=== PATIENT | female | born 1965 | race Caucasian/White ===

== ENCOUNTER 2021-01-31 21:18 | Inpatient (IN) | payer MEDICARE, MEDICAID ==
[~2021-01-31] VITALS: Ht 157.5 cm; Wt 103.0 kg
--- NOTE | ~2021-01-31 | EEG ---
PATIENT:RICHA DURAN MEDICAL RECORD: [id number] DATE OF : 65 LOCATION:D.212 D.M2 ADMISSION DATE: 01/31/21 REFERRING PHYSICIAN: INTERPRETING PHYSICIAN: HANNAH MONAE MD DATE OF SERVICE: 02/05/2021 DATE OF EE02/05/2021. ROOM NUMBER: 2120. ORDERED BY: Dr. Monae. CASE HISTORY: A 56-year-old female with known renal failure, on dialysis, transferred from another facility with hyperkalemia, missed her dialysis 3 days prior, now more lethargic and poorly responsive, onset 02/04/2021. Blood chemistries are abnormal. No focal motor or sensory deficits or seizure reported. CT head negative. PROCEDURE: EEG done as a routine bedside portable recording using the standard 10-20 international electrode system . A 16-channel was used with 17th as EKG. Photic stimulation was done as activation procedure. DESCRIPTION: EEG opens with the patient poorly responsive, moving about with the record displaying diffuse background slowing in the theta and delta range. Primarily background is characterized by organization in the 5-6 Hz range, rarely 6-7 Hz range with prominent delta slowing intermixed. There is motor artifact related to patient head and limb movement. Photic stimulation did not yield a photoparoxysmal response. No epileptiform change such as spike, polyspike, or spike and wave was seen. IMPRESSION: Moderately abnormal EEG with diffuse background slowing consistent with encephalopathy. No focal abnormality that might suggest stroke and no evidence of seizure disorder. TRANSINT:[id number] Voice Confirmation ID: [id number] DOCUMENT ID: [id number] HANNAH MONAE MD CC: [id number] DICTATION DATE: 02/05/21 1154 BROOMCORN SEEDER: 02/05/21 1639 ADM IN [facility] [address] [place] [address]
[2021-01-31 23:56] VITALS: BP 132/78; BMI 42.1
[2021-02-01] VITALS (15 sets, daily range): BP systolic 127–158; BP diastolic 49–87; Ht 157.5 cm; Wt 103.0 kg
[2021-02-01 00:33] LABS: BASOPHILS 0.2 % (0-2); EOSINOPHILS 0.8 % (0-7); HEMATOCRIT 27.1 % (36.0-48.0); HEMOGLOBIN 8.1 g/dL (12-16); IMMATURE GRANULOCYTES 0.3 % (0-5); LYMPHOCYTE ABS# 0.65 10x3/uL (1.18-3.74); LYMPHOCYTES 7.4 % (15-50); MCH 29.8 pg (26.0-34.0); MCHC 29.9 g/dL (31.0-37.0); MCV 99.6 fL (80.0-100.0); MEAN PLATELET VOLUME 10.7 fL (7.4-10.4); MONOCYTES 5.7 % (2-11); NEUTROPHIL ABS# 7.56 10x3/uL (1.56-6.13); NEUTROPHILS 85.6 % (40-80); PLATELET COUNT 110 10x3/uL (130-400); RBC 2.72 10x6/uL (4.00-5.40); RDW 18.8 % (11.5-14.5); WBC 8.8 10x3/uL (4.8-10.8)
[2021-02-01 00:50] LABS: ALBUMIN 3.7 g/dL (3.4-5.0); ANION GAP 31.6 mmol/L (8-16); BILIRUBIN - TOTAL 0.53 mg/dL (0.2-1.3); CALCIUM 7.4 mg/dL (8.5-10.1); CARBON DIOXIDE 16.5 mmol/L (21.0-32.0); CREATININE - SERUM 8.7 mg/dL (0.6-1.3); PROTEIN - SERUM 7.5 g/dL (6.4-8.2)
[2021-02-01 00:54] LABS: POTASSIUM - SERUM 7.1 mmol/L (3.5-5.1)
[2021-02-01 04:36] LABS: BASOPHILS 0.1 % (0-2); EOSINOPHILS 0.8 % (0-7); HEMATOCRIT 26.4 % (36.0-48.0); IMMATURE GRANULOCYTES 0.4 % (0-5); LYMPHOCYTE ABS# 0.52 10x3/uL (1.18-3.74); LYMPHOCYTES 6.5 % (15-50); MCH 30.1 pg (26.0-34.0); MCHC 30.3 g/dL (31.0-37.0); MCV 99.2 fL (80.0-100.0); MEAN PLATELET VOLUME 10.3 fL (7.4-10.4); MONOCYTES 6.3 % (2-11); NEUTROPHIL ABS# 6.85 10x3/uL (1.56-6.13); NEUTROPHILS 85.9 % (40-80); PLATELET COUNT 114 10x3/uL (130-400); RBC 2.66 10x6/uL (4.00-5.40)
[2021-02-01 04:55] LABS: APTT 57.2 SECONDS (22.8-39.4)
[2021-02-01 05:09] LABS: ALBUMIN 3.6 g/dL (3.4-5.0); BILIRUBIN - TOTAL 0.53 mg/dL (0.2-1.3); CALCIUM 8.1 mg/dL (8.5-10.1); MAGNESIUM - SERUM 2.5 mg/dL (1.8-2.4); PHOSPHOROUS 7.3 mg/dL (2.5-4.9); PROTEIN - SERUM 7.7 g/dL (6.4-8.2); THYROID STIMULATING HORMONE 4.41 uIU/mL (0.36-3.74)
[2021-02-01 05:14] LABS: ANION GAP 24.7 mmol/L (8-16); CARBON DIOXIDE 21.4 mmol/L (21.0-32.0); CREATININE - SERUM 5.8 mg/dL (0.6-1.3); POTASSIUM - SERUM 4.1 mmol/L (3.5-5.1)
[2021-02-01 05:34] LABS: INR 1.53 (0.85-1.17); PROTIME 17.1 SECONDS (11.6-15.0)
[2021-02-01] MEDS ORDERED: NEXIUM40 MG PO (11:43)
[2021-02-01] MEDS ORDERED: SEROQUEL100 MG PO (11:45)
[2021-02-01] MEDS ORDERED: CLONIDINE HCL0.1 MG (11:45)
[2021-02-01] MEDS ORDERED: LASIX80 MG PO (11:46)
[2021-02-01] MEDS ORDERED: GABAPENTIN300 MG PO (11:47)
[2021-02-01] MEDS ORDERED: LANTUS SOL100 UNIT/2 (11:48)
[2021-02-01] MEDS ORDERED: HYDROCODON-ACE1 EA10 PO (11:48)
[2021-02-01] MEDS ORDERED: PERCOCET 10-321 EAC1 (11:49)
[2021-02-01] MEDS ORDERED: ATIVAN1 MG PO (11:49)
[2021-02-01] MEDS ORDERED: CEPHALEXIN 500 MG (11:50)
[2021-02-01] MEDS ORDERED: FLORINEF 0.1 M0.1 MG PO (11:52)
[2021-02-01] MEDS ORDERED: VASCEPA1 GM PO (11:52)
[2021-02-01] MEDS ORDERED: VITAMIN B-12500 MCG PO (11:52)
[2021-02-01] MEDS ORDERED: NEPHRO-VITE RX1 TAB PO (11:53)
[2021-02-01] MEDS ORDERED: BAYER CHEWABLE81 MG PO (11:53)
--- NOTE | 2021-02-01 12:00 | NUR ---
PT ASKS TO SEE HER BAG. ATTEMPTED TO HELP HER WITH IT AND FIND A BOAT LOAD OF MEDICINES, TO INCLUDE NARCOTICS. THESE ARE REMOVED FROM HER AND PHARMACY IS CALLED TO STORE. MED REC COMPLETE. DR. BLOCK CALLED TO [facility].
--- NOTE | 2021-02-01 14:57 | NUR ---
TRANSFER FROM ICU BY BED. OREINTED TO ROOM. CALL LIGHT IN REACH. WILL CONT. PLAN OF CARE.
[2021-02-02 05:14] VITALS: BP 153/59
[2021-02-02 06:03] LABS: ALBUMIN 3.2 g/dL (3.4-5.0); ANION GAP 27.2 mmol/L (8-16); BILIRUBIN - TOTAL 0.55 mg/dL (0.2-1.3); CALCIUM 7.3 mg/dL (8.5-10.1); CARBON DIOXIDE 20.4 mmol/L (21.0-32.0); MAGNESIUM - SERUM 2.4 mg/dL (1.8-2.4); PHOSPHOROUS 8.5 mg/dL (2.5-4.9); POTASSIUM - SERUM 4.6 mmol/L (3.5-5.1); PROTEIN - SERUM 7.1 g/dL (6.4-8.2)
[2021-02-02 06:08] LABS: CREATININE - SERUM 7.3 mg/dL (0.6-1.3)
[2021-02-02 06:16] LABS: BASOPHILS 0.1 % (0-2); EOSINOPHILS 1.2 % (0-7); HEMATOCRIT 24.6 % (36.0-48.0); IMMATURE GRANULOCYTES 0.3 % (0-5); LYMPHOCYTE ABS# 0.75 10x3/uL (1.18-3.74); LYMPHOCYTES 7.5 % (15-50); MCH 30.4 pg (26.0-34.0); MCHC 30.5 g/dL (31.0-37.0); MCV 99.6 fL (80.0-100.0); MEAN PLATELET VOLUME 10.5 fL (7.4-10.4); MONOCYTES 11.8 % (2-11); NEUTROPHIL ABS# 7.87 10x3/uL (1.56-6.13); NEUTROPHILS 79.1 % (40-80); PLATELET COUNT 124 10x3/uL (130-400); RBC 2.47 10x6/uL (4.00-5.40); RDW 19.2 % (11.5-14.5)
[2021-02-02 06:19] LABS: HEMOGLOBIN 7.5 g/dL (12-16)
[2021-02-02 08:51] VITALS: BP 141/81
[2021-02-02 13:06] VITALS: BP 151/58
--- NOTE | 2021-02-02 13:17 | NUR ---
Nutrition Reassessment/Follow-up: From ICU. Pt reports improved appetite compared to yesterday. Denies N/V/C/D, chewing/swallowing difficulties. Likes Nepro. HD yesterday (-2 L); HD again today. Diet: Renal ADA No new wt; last wt: 227# (02/01) Labs noted: K+ 4.6, Glu 126, Ca 7.3, PO4 8.5, Alb 3.2 Meds noted: Pepcid, electrolyte protocol -Nutrition needs unchanged since initial assessment. -Encourage PO intake and honor food preferences within diet restrictions. -+Nepro daily. -MD may consider PO4 binder 2/2 hyperphosphatemia. -Monitor wt. -RD follow-up: 02/06
[2021-02-02 15:51] VITALS: BP 147/62
[2021-02-02 20:45] VITALS: BP 142/72
--- NOTE | 2021-02-02 21:45 | NUR ---
BACK FROM DIALYSIS VIA BED AT 2009. NO DISTRESS NOTED. DINNER TRAY SET UP FOR PT. PT HAS JERKY MOTION TO BILAT UPPER ARMS. ASSISTED WITH MEAL. ASSESSMENT COMPLETED AT 2020 HRS SR PER CMHR 96. VSS. ALERT AND ORIENTED TO PERSON, PLACE AND SITUATION. REORIENTED TO TIME. IV TO RFA SL. R CHEST HEMOSPLIT CLEAN,DRY AND INTACT. LUNGS ESSENTIALLY CTA. LINO. JERKY MOTION TO BILAT ARMS. PM MEDS GIVEN WITHOUT DIFFICULTY. PT SWALLOWS WELL. PT CURENTLY WATCHING TV. SR UP X3, CALL LIGHT WITHIN REACH.
--- NOTE | 2021-02-03 00:42 | NUR ---
PT RESTING WITH EYES CLOSED. RESP EVEN AND REGULAR. SR UP X3, CALL LIGHT WITHIN REACH.
[2021-02-03 01:43] VITALS: BP 133/61
--- NOTE | 2021-02-03 02:20 | NUR ---
PT AWAKE; ORIENTED TO PERSON ONLY. FOLLOWS COMMANDS. REORIENTED TO PLACE, TIME AND SITUATION, NORCO 10/325 PO GIVEN FOR C/O GENERALIZED PAIN. SR UP X3, CALL LIGHT WITHIN REACH.
--- NOTE | 2021-02-03 04:23 | NUR ---
PT ALERT, ORIENTED TO PERSON ONLY. REORIENTED TO PLACE, TIME AND SITUATION. FOLLOWS COMMANDS. HAVING A CONVERSATION WITH SELF. SR UP X3, CALL LIGHT WITHIN REACH.
[2021-02-03 06:11] VITALS: BP 148/70
--- NOTE | 2021-02-03 06:23 | NUR ---
PT ORIENTED TO PERSON ONLY. VISUAL HALLUCINATIONS NOTED AND PT HAVING A CONVERSATION WITH THEM. SR PER CM. NEEDS MET; WILL CONTINUE TO MONITOR.
--- NOTE | 2021-02-03 07:00 | NUR ---
RECEIVED REPORT. ASSUMED CARE OF PATIENT. CALL LIGHT WITHIN REACH. WHITE BOARD UPDATED, BEDSIDE SHIFT REPORT COMPLETE. DENIES NEEDS AT THIS TIME.
[2021-02-03 08:14] VITALS: BP 160/66
[2021-02-03 08:40] LABS: BASOPHILS 0.2 % (0-2); EOSINOPHILS 2.7 % (0-7); HEMATOCRIT 27.3 % (36.0-48.0); HEMOGLOBIN 8.3 g/dL (12-16); IMMATURE GRANULOCYTES 0.8 % (0-5); LYMPHOCYTE ABS# 1.07 10x3/uL (1.18-3.74); LYMPHOCYTES 11.6 % (15-50); MCH 30.1 pg (26.0-34.0); MCHC 30.4 g/dL (31.0-37.0); MCV 98.9 fL (80.0-100.0); MEAN PLATELET VOLUME 9.8 fL (7.4-10.4); NEUTROPHIL ABS# 7.02 10x3/uL (1.56-6.13); NEUTROPHILS 75.7 % (40-80); PLATELET COUNT 127 10x3/uL (130-400); RBC 2.76 10x6/uL (4.00-5.40); RDW 17.9 % (11.5-14.5); WBC 9.3 10x3/uL (4.8-10.8)
[2021-02-03 08:53] LABS: ALBUMIN 3.4 g/dL (3.4-5.0); ANION GAP 20.3 mmol/L (8-16); BILIRUBIN - TOTAL 0.53 mg/dL (0.2-1.3); CALCIUM 8.3 mg/dL (8.5-10.1); CARBON DIOXIDE 24.9 mmol/L (21.0-32.0); MAGNESIUM - SERUM 2.4 mg/dL (1.8-2.4); PHOSPHOROUS 7.4 mg/dL (2.5-4.9); POTASSIUM - SERUM 4.2 mmol/L (3.5-5.1); PROTEIN - SERUM 7.4 g/dL (6.4-8.2)
--- NOTE | 2021-02-03 08:56 | NUR ---
Patient conversing with people unseen to others in her room. Pt requesting to go outside and smoke, will request nicotine patch. no distress.
[2021-02-03] MEDS ORDERED: OMNICEF300 MG PO (11:28)
[2021-02-03 12:24] VITALS: BP 165/79
--- NOTE | 2021-02-03 13:11 | NUR ---
SPOKE WITH PATIENTS NAVA DEYANIRA FRAGOSO @ [phone] FOR BETTER UNDERSTANDING OF PATIENT HOME SITUATION. DEYANIRA STATES THAT SHE WAS CARING FOR AND MOTHER AT HER [facility]. DEYANIRA WAS GONE FOR ONE WEEK AND CAME BACK AND FOUND THAT THE STEPBROTHER HAD PLACED MOTHER IN THE [place] AND WHILE SHE WAS AT THE HOSPTIAL IN [place], HE EVICTED . DEYANIRA FRAGOSO STATES THAT SHE HAS BEEN WORKING WITH [employer] IN [place] AND HOPES TO HEAR FROM THEM ON FRIDAY WHETHER SHE WILL BE ACCEPTED OR NOT.
--- NOTE | 2021-02-03 15:47 | NUR ---
PATIENT PSYCHOTIC BEHAVIOR STARTING TO ESCALATE. PATIENT IS ACCUSING STAFF OF STEALING HER STUFF AND TEARING UP HER STUFF. CHARGE NURSE INFORMED, THIS SKULL SPLITTER WILL NOT PROVIDE CARES ALONE DUE TO PATIENT MAKING FALSE ACCUSATIONS.
--- NOTE | 2021-02-03 16:45 | NUR ---
PATIENT PULLED IV OUT OF RIGHT FOREARM AND THREW IT ON THE FLOOR. CATHETER TIP INTACT. NO BLEEDING FROM SITE. AREA CLEANSE AND BANDAID APPLIED, PATIENT PICKING AT BANDAID. NO DISTRESS.
--- NOTE | 2021-02-03 17:21 | NUR ---
PATIENTS MENTAL STATUS CONTINUES TO ESCALATE. PATIENT IS UNSTEADY ON HER FEET, TRYING TO GET OOB. PATIENT IS SEEING A CAT SITTING IN THE WINDOW, SAYS THAT NOBODY WILL LET THE CAT IN AND FEED IT, PATIENT IS NOT ORIENTED AND WILL NOT REASON WITH STAFF AT THIS TIME. ORDER RECEIVED FOR PSYCH CONSULT.
--- NOTE | 2021-02-03 18:11 | NUR ---
ASSISTED PATIENT ON AND OFF THE BEDPAN, PATIENT CONTINUES TO HAVE CONVERSTATIONS WITH PEOPLE. URINALYSIS COLLECTED AT THIS TIME. ASSISTED PATIENT TO BE PULLED UP IN THE BED. JEWLRY FOUND IN PATIENT BED. CALLED PHOTOENGRAVING APPRENTICE AND WAS INSTRUCTED TO CALL 2413. CALLED 2413 AND WAS TOLD GINA HAD GONE DOWNSTAIRS BUT ONE OF THEM WOULD COME SOON AND CRYPTOANALYSIS TEACHER THE JEWLRY. YELLOW COLORED BAND WITH 5 CLEAR STONES ON TOP OF THE BAND. AWAITING ADMISSIONS TO RETRIEVE THE JEWLERY.
[2021-02-03 18:35] LABS: BILIRUBIN NEGATIVE (NEGATIVE); KETONE NEGATIVE (NEGATIVE); NITRITE POSITIVE (NEGATIVE); UROBILINOGEN NORMAL mg/dL (< 2)
--- NOTE | 2021-02-03 18:35 | NUR ---
JUAN J FROM ADMISSIONS CAME AND RETRIEVED THE RING. RING PLACED IN CLEAR BAG AND THEN PLACED IN SOLID BOYLE PLASTIC BAG TO BE PLACED IN SAFE. COPIES OF PAPERWORK PLACED ON CHART TO SHOW RING IS LOCKED UP IN THE SAFE. JUANJOSEKED JUAN J FOR COMING SO SOON TO THE UNIT.
[2021-02-03 18:38] LABS: WHITE CELLS - URINE 0-5 HPF (0-4)
[2021-02-03 18:39] LABS: BACTERIA MODERATE HPF (NONE SEEN); SQUAMOUS EPITHELIAL 0-5 HPF (0-4)
--- NOTE | 2021-02-03 19:50 | NUR ---
INITAIL ROUNDS COMPLETED AT 1915. PT ALERT, ORIENTED TO PERSON ONLY. HAVING CONVERSATIONS WITH VISUAL HALLUCINATIONS. SR UP X3, CALL LIGHT WITHIN REACH.
--- NOTE | 2021-02-03 23:51 | NUR ---
ASSESSMENT COMPLETED AT 2010 HRS. PT ALERT, ORIENTED TO PERSON ONLY. PT HAVING VISUAL AND AUDITORY HALLUCINATIONS. VSS. SR PER CM HR 98. R CHEST HEMOSPLIT CLEAN, DRY AND INTACT. LUNGS DIMINISHED IN BASES BILAT. LINO. UPPER ARMS LESS JERKY THIS PM. PM MEDS GIVEN WITHOUT DIFFICULTY. PT CURRENTLY TALKING TO HER "DOG". SR UP X3, CALL LIGHT WITHIN REACH.
--- NOTE | 2021-02-04 01:57 | NUR ---
PT INCONTINENT OF URINE. BED LINENS CHANGED, INCONTINENT CARE DONE, ORIENTED TO PERSON ONLY. PT FOLLOWS COMMANDS THEN FALLS BACK TO SLEEP. SCD'S PLACED. SR UP X2, CALL LIGHT WITHIN REACH AND BED ALARM ON.
[2021-02-04 03:48] VITALS: BP 140/71
--- NOTE | 2021-02-04 03:49 | NUR ---
AT 0255 HRS PT'S O2 SAT 85% ON RA. O2 2LNC PALCED WITH O2 SAT TO 98% AFTER A FEW MINUTES. PT SLEEPING SOUNDLY. OPENS EYES TO VERBAL AND PHYSICAL STIMULI THEN FALLS BACK TO SLEEP. IV STARTED #22 TO L WRIST WITH ATTEMPT X2. PT NOT COOPERATIVE. SITE WRAPPED IN KERLIX. 0400 VSS. SR UP X3, CALL LIGHT WITHIN REACH AND BED ALARM ON.
--- NOTE | 2021-02-04 06:06 | NUR ---
PT AROUSES TO SPEECH, ORIENTED TO PERSON ONLY. FOLLOS COMMANDS BUT QUICKLY FALLS BACK TO SLEEP. ROCKY. VSS. SR PER CM HR 95. O2 SAT 98% ON 2LNC. REPOSITIONED IN BED FOR COMFORT. NEEDS MET; WILL CONTINUE TO MONITOR.
[2021-02-04 06:08] LABS: BASOPHILS 0.3 % (0-2); EOSINOPHILS 4.7 % (0-7); HEMATOCRIT 27.5 % (36.0-48.0); HEMOGLOBIN 8.3 g/dL (12-16); IMMATURE GRANULOCYTES 0.7 % (0-5); LYMPHOCYTE ABS# 1.01 10x3/uL (1.18-3.74); LYMPHOCYTES 10.2 % (15-50); MCH 29.7 pg (26.0-34.0); MCHC 30.2 g/dL (31.0-37.0); MCV 98.6 fL (80.0-100.0); MEAN PLATELET VOLUME 9.5 fL (7.4-10.4); MONOCYTES 10.6 % (2-11); NEUTROPHIL ABS# 7.27 10x3/uL (1.56-6.13); NEUTROPHILS 73.5 % (40-80); PLATELET COUNT 134 10x3/uL (130-400); RBC 2.79 10x6/uL (4.00-5.40); RDW 17.1 % (11.5-14.5); WBC 9.9 10x3/uL (4.8-10.8)
[2021-02-04 06:49] LABS: ALBUMIN 3.2 g/dL (3.4-5.0); ANION GAP 17.2 mmol/L (8-16); BILIRUBIN - TOTAL 0.42 mg/dL (0.2-1.3); CALCIUM 8.4 mg/dL (8.5-10.1); CARBON DIOXIDE 25.3 mmol/L (21.0-32.0); CREATININE - SERUM 6.7 mg/dL (0.6-1.3); MAGNESIUM - SERUM 2.6 mg/dL (1.8-2.4); PHOSPHOROUS 8.9 mg/dL (2.5-4.9); POTASSIUM - SERUM 4.5 mmol/L (3.5-5.1); PROTEIN - SERUM 7.3 g/dL (6.4-8.2)
--- NOTE | 2021-02-04 07:05 | NUR ---
INITIAL ROUNDS- PT RESTING COMFORTABLY IN BED WITH EYES CLOSED, AROUSES TO VOICE BUT FALLS BACK ASLEEP. LT WRIST IV SL, ON 2L NC WITH UNLABORED BREATHING. SR-87 ON TELE. PT DENIES ANY NEEDS AT THIS TIME. CALL LIGHT IN REACH, ALARM ON, WILL CONTINUE PLAN OF CARE.
[2021-02-04 09:09] VITALS: BP 178/63
--- NOTE | 2021-02-04 09:48 | NUR ---
PT TOO LETHARGIC TO TAKE ANY PO MEDICATIONS. NOTIFIED DR. GREEN. NEW ORDER FOR ABGS AND AMMONIA LEVEL.
--- NOTE | 2021-02-04 10:53 | NUR ---
CLEANED PT UP FROM INCONT EPISODE. PT STILL LETHARGIC WILL AROUSE AND THEN FALL BACK ASLEEP. JUST CAME BACK FROM HAVING CT OF HEAD DONE. ALL NEEDS MET, CALL LIGHT IN REACH.
[2021-02-04 12:17] VITALS: BP 169/66
--- NOTE | 2021-02-04 13:51 | NUR ---
PT CAME BACK FROM GETTING MRI, PT AWAKE AND TALKING. DENIES ANY NEEDS AT THIS TIME. JASWANT ALARM ON, CALL LIGHT IN REACH.
[2021-02-04 16:33] VITALS: BP 175/70
--- NOTE | 2021-02-04 19:30 | NUR ---
RECEIVED REPORT, WILL ASSUME CARE OF PT, WILL LOOK AT YOU WHEN TALKING TO HER, BED IS LOW, SRX2, CALL LIGHT IN REACH, WILL CONTINUE PLAN OF CARE
[2021-02-04 21:39] VITALS: BP 170/72
[2021-02-05 04:13] VITALS: BP 162/72
[2021-02-05 05:22] VITALS: BP 162/72
--- NOTE | 2021-02-05 06:14 | NUR ---
I have reviewed this patient and I concur with the Shift Assessment completed by the Licensed Practical Nurse today this shift.
--- NOTE | 2021-02-05 07:00 | NUR ---
RECEIVED REPORT. ASSUMED CARE OF PATIENT. PATIENT AWAKE THIS AM, ABLE TO FOLLOW SIMPLE COMMANDS, CONTINUES WITH JERKING MOVEMENTS TO UPPER EXTREMITIES AND SPEECH IS DELAYED. CALL LIGHT WITHIN REACH. WHITE BOARD UPDATED, BEDSIDE SHIFT REPORT COMPLETE. DUE TO THRASHING OF LEGS, SCDS ARE NOT IN PLACE AT THIS TIME PATIENT WAS GETTING TANGLED IN SCD CORDS.
--- NOTE | 2021-02-05 07:32 | NUR ---
TRANSACTION COORDINATOR AT BEDSIDE NOW.
[2021-02-05 07:59] LABS: BASOPHILS 0.2 % (0-2); EOSINOPHILS 3.8 % (0-7); HEMATOCRIT 28.9 % (36.0-48.0); HEMOGLOBIN 8.8 g/dL (12-16); IMMATURE GRANULOCYTES 0.8 % (0-5); LYMPHOCYTE ABS# 0.72 10x3/uL (1.18-3.74); LYMPHOCYTES 7.2 % (15-50); MCH 30.3 pg (26.0-34.0); MCHC 30.4 g/dL (31.0-37.0); MCV 99.7 fL (80.0-100.0); MEAN PLATELET VOLUME 10.1 fL (7.4-10.4); MONOCYTES 7.4 % (2-11); NEUTROPHIL ABS# 8.06 10x3/uL (1.56-6.13); NEUTROPHILS 80.6 % (40-80); PLATELET COUNT 153 10x3/uL (130-400); RDW 16.4 % (11.5-14.5); RETIC 2.69 % (0.45-2.28)
[2021-02-05 08:43] LABS: % SATURATION 35 % (15-55); IRON 53 ug/dl (35-150); TOTAL IRON BIND CAPACITY 150 ug/dl (260-445); UNSAT IRON BIND CAPACITY 97 ug/dl (150-375)
[2021-02-05 08:54] LABS: ALBUMIN 3.2 g/dL (3.4-5.0); ALKALINE PHOSPHATASE 119 U/L (30-120); ALT (SGPT) 26 U/L (10-68); BILIRUBIN - TOTAL 0.52 mg/dL (0.2-1.3); CALC OSMOLALITY 316 mosm/kg (275-300); CALCIUM 8.4 mg/dL (8.5-10.1); CHLORIDE - SERUM 100 mmol/L (98-107); CREATININE - SERUM 8.1 mg/dL (0.6-1.3); FERRITIN 1439 ng/mL (3-244); GLUCOSE 146 mg/dL (74-106); MAGNESIUM - SERUM 2.6 mg/dL (1.8-2.4); POTASSIUM - SERUM 4.8 mmol/L (3.5-5.1); PROTEIN - SERUM 7.3 g/dL (6.4-8.2); SODIUM 141 mmol/L (136-145); eGFR NON AFRICAN AMERICAN 5 mL/min (90-120)
[2021-02-05 08:55] LABS: PHOSPHOROUS 11.4 mg/dL (2.5-4.9)
[2021-02-05 08:56] LABS: UREA NITROGEN 105 mg/dL (7-18)
--- NOTE | 2021-02-05 10:45 | NUR ---
TRANSPORTED PATIENT VIA BED TO DIALYSIS AT THIS TIME. NO DISTRESS UPON LEAVING THE UNIT. PATIENT IS STILL WORRIED ABOUT NOT RECEIVING HER SEROQUEL YET. ASSURED PATIENT SOON THE MEDICATION IS REORDERED, I WOULD BRING IT TO HER.
--- NOTE | 2021-02-05 14:04 | NUR ---
DIALYSIS CALLED AND PATIENT TREATMENT IS COMPLETE. DIALYSIS NURSE CARRI REPORTS PATIENT IS NOT TALKATIVE SHE WAS WHEN SHE WAS BROUGHT DOWN THIS AM. PATIENT BACK TO UNIT SOON.
--- NOTE | 2021-02-05 14:30 | NUR ---
PATIENT BACK FROM DIALYSIS. PATIENT WITH FACIAL TICKS AND UPPER EXTREMITY TREMORS. UNABLE TO HOLD CONVERSATION SHE WAS THIS AM, PATIENT ABLE TO SAY ONE OR TWO WORDS WITH DELAY. NOTIFIED DAVID AGUERO AND HE DISCUSSED PATIENT WITH . MORE REPORTS PER , PATIENT IS HAVING WAXING/WANNING ENCEPHALOPATHY AND THAT THE EEG DID NOT APPEAR TO SHOW PATIENT HAVING ANY RECENT SEIZURES. THANKED MORE FOR THE INFORMATION AND CONTINUING TO MONITOR MENTAL STATUS OF PATIENT.
--- NOTE | 2021-02-05 17:01 | NUR ---
INCONTINENT CARE PROVIDED AT THIS TIME.
--- NOTE | 2021-02-05 17:24 | NUR ---
PATIENT MORE ALERT NOW, TALKING AGAIN, COMPLAINS OF A HEADACHE. MEDICATED WITH TYLENOL. PATIENT UPSET THAT THEY HAVE NOT RESTARTED HER SEROQUEL YET. PATIENT HAD ANOTHER INCONTINENT EPISODE OF STOOL. INCONTINENT CARES PROVIDED. NO DISTRESS.
--- NOTE | 2021-02-05 18:33 | NUR ---
PAGED, PATIENT IS NOT EXHIBITING ANY AGGITATION OR PSYCHOTIC BEHAVIORS, SHE IS NOW SCHEDULED TO RECEIVED KLONOPIN AND HALDOL, DOES SHE REALLY NEED THIS?? PATIENT IS REQUESTING HER SEROQUEL AT , PATIENT STATES IT IS FOR SLEEP BUT PSYCH HISTORY UNKNOWN TO THIS HAND HOSE CUTTER. AWAITING FOR TO RETURN CALL.
--- NOTE | 2021-02-05 19:28 | NUR ---
RECEIVED UP IN BED WITH EYES OPEN AND TV ON. ALERT AND ORIENTED WITH SOME PERIODS OF CONFUSION. HEMO SPLIT TO RT CHEST AND PERIPHEAL IV TO LT WRIST SL. TELEMETRY IN PLACE. INCONT OF B/B. DENIES ANY NEEDS AT THIS TIME.
[2021-02-05 20:00] VITALS: BP 164/58
[2021-02-06] VITALS: BP 151/52
[2021-02-06 04:00] VITALS: BP 162/71
[2021-02-06 05:17] LABS: BASOPHILS 0.4 % (0-2); EOSINOPHILS 4.2 % (0-7); HEMATOCRIT 27.1 % (36.0-48.0); HEMOGLOBIN 8.3 g/dL (12-16); IMMATURE GRANULOCYTES 0.5 % (0-5); LYMPHOCYTE ABS# 0.89 10x3/uL (1.18-3.74); LYMPHOCYTES 10.7 % (15-50); MCH 30.1 pg (26.0-34.0); MCHC 30.6 g/dL (31.0-37.0); MCV 98.2 fL (80.0-100.0); MEAN PLATELET VOLUME 9.8 fL (7.4-10.4); MONOCYTES 11.7 % (2-11); NEUTROPHIL ABS# 6.01 10x3/uL (1.56-6.13); NEUTROPHILS 72.5 % (40-80); PLATELET COUNT 158 10x3/uL (130-400); RBC 2.76 10x6/uL (4.00-5.40); RDW 16.2 % (11.5-14.5); WBC 8.3 10x3/uL (4.8-10.8)
[2021-02-06 05:33] LABS: ANION GAP 19.6 mmol/L (8-16); BILIRUBIN - TOTAL 0.45 mg/dL (0.2-1.3); CALCIUM 8.5 mg/dL (8.5-10.1); CARBON DIOXIDE 23.6 mmol/L (21.0-32.0); MAGNESIUM - SERUM 2.4 mg/dL (1.8-2.4); POTASSIUM - SERUM 4.2 mmol/L (3.5-5.1)
[2021-02-06 05:45] LABS: CREATININE - SERUM 5.8 mg/dL (0.6-1.3)
--- NOTE | 2021-02-06 07:34 | NUR ---
AM ROUNDING DONE WITH PATIENT INSISTENT ON GETTING HER SEROQUEL. THIS IS GIVEN. ON ROOM AIR. ON HEART MONITOR. LEFT FA SEEN WITH SALINE LOCK. HEMISPLIT TO RIGHT CHEST, DRESSING C/D/I. REFUSES TO WEAR SCD, EDUCATION TAUGHT. CALL LIGHT IN REACH.
[2021-02-06 08:00] VITALS: BP 155/69
--- NOTE | 2021-02-06 10:12 | NUR ---
COMPLAINTS OF BACK PAIN 07/15, TYLENOL GIVEN.
[2021-02-06 11:30] VITALS: BP 146/52
--- NOTE | 2021-02-06 12:39 | NUR ---
Nutrition Reassessment/Follow-up: Eating well; ate 100% of breakfast this AM with Nepro. Nursing reports hyperactive BS. HD MWF. PO4 elevated. Diet: Renal, Carb Consistent, Nepro QD No new wt; last wt: 227# (02/01) Last BM: 02/06 Labs noted: K+ 4.2, Glu 181, PO4 11.4 (02/05), Alb 3.0 Meds noted: Pepcid, electrolyte protocol -Nutrition needs unchanged from initial assessment; no new wt available. -MD may consider PO4 binder 2/2 hyperphosphatemia. -RD will follow up within 7 days if pt still admitted.
--- NOTE | 2021-02-06 12:59 | NUR ---
CLEANED UP FROM INCONT. OF STOOL. COMPLETE BATH AND LINEN CHANGE DONE.
[2021-02-06 15:00] VITALS: BP 154/55
--- NOTE | 2021-02-06 15:49 | PN ---
PATIENT:RICHA DURAN MEDICAL RECORD: [id number] LOCATION:D[facility].212 ADMISSION DATE: 01/31/21 PROGRESS NOTE DATE OF SERVICE: 02/05/2021 SUBJECTIVE: The patient's case was discussed with staff and the medical record was reviewed. OBJECTIVE: The patient is confused. She is disorganized and unable to cooperate with formal mental status testing. She is following commands and answering simple questions. She is quite restless. ASSESSMENT: Delirium, cause uncertain. PLAN: The patient will be treated with a scheduled dose of both an antipsychotic and an anxiolytic. Supportive medical care of course will aid in her improvement. I see no indication that this is related to some sort of substance use problem. I will monitor her progress. TRANSINT:[id number] Voice Confirmation ID: [id number] DOCUMENT ID: [id number] CHUCKY MACHADO MD at 1549 CC: [id number] DICTATION DATE: 02/05/21 1621 LEGAL BILLING ANALYST: 02/05/21 2246 ADM IN [facility] [address] [place] [address]
--- NOTE | 2021-02-06 16:13 | NUR ---
ASSIST TO CHAIR WITH AJSWANT MAT ALARM PLACED IN CHAIR AND TURNED ON. CALL LIGHT IN LAP.
--- NOTE | 2021-02-06 20:15 | NUR ---
RECEIVED SITTING UP IN BED. ALERT AND ORIENTED X4. UP WITH ASSIST. VERY TALKATIVE. STATES SHE IS READY TO GO HOME. HEMO SPLIT TO RT CHEST AND RECEIVES DIALYSIS MON-FRI-FRI. IV TO LT FA SL. DENIES ANY NEEDS AT THIS TIME.
[2021-02-06 21:45] VITALS: BP 169/66
[2021-02-07 01:34] VITALS: BP 133/58
[2021-02-07 05:18] VITALS: BP 182/76
[2021-02-07 06:15] LABS: BASOPHILS 0.2 % (0-2); EOSINOPHILS 4.3 % (0-7); HEMATOCRIT 29.6 % (36.0-48.0); IMMATURE GRANULOCYTES 0.3 % (0-5); LYMPHOCYTE ABS# 1.25 10x3/uL (1.18-3.74); LYMPHOCYTES 12.6 % (15-50); MCHC 30.4 g/dL (31.0-37.0); MCV 98.7 fL (80.0-100.0); MEAN PLATELET VOLUME 9.9 fL (7.4-10.4); MONOCYTES 8.4 % (2-11); NEUTROPHIL ABS# 7.38 10x3/uL (1.56-6.13); NEUTROPHILS 74.2 % (40-80); PLATELET COUNT 182 10x3/uL (130-400)
[2021-02-07 06:32] LABS: ALBUMIN 3.5 g/dL (3.4-5.0); ANION GAP 21.9 mmol/L (8-16); BILIRUBIN - TOTAL 0.35 mg/dL (0.2-1.3); CALCIUM 8.8 mg/dL (8.5-10.1); MAGNESIUM - SERUM 2.5 mg/dL (1.8-2.4); POTASSIUM - SERUM 3.9 mmol/L (3.5-5.1)
--- NOTE | 2021-02-07 07:40 | NUR ---
AM ROUNDING DONE WITH PATIENT SITTING IN CHAIR ON JASWANT MAT ON AND IN USE. CALL LIGHT AT SIDE. LEFT FA SALINE LOCK SEEN. RIGHT CHEST HEMISPLIT SEEN WITH C/D/I DRESSING. ON EP, LABS THIS AM ARE WNL. ON ROOM AIR.
[2021-02-07 08:00] VITALS: BP 174/54
--- NOTE | 2021-02-07 09:52 | NUR ---
NAVA MCMILLAN TO CALL WANTING TO KNOW IF "SHE HAS HER WALLET" WITH PATIENT PERMISSION AND WITH RITCHIE RIVERA CNA AND JEFFRY BARRAGAN IN THE ROOM WE SEARCHED HER THINGS. NO WALLET.
[2021-02-07 12:00] VITALS: BP 180/75
--- NOTE | 2021-02-07 12:35 | NUR ---
TRIED CALLING ALTERNATE PHONE NUMBER AGAIN WITH BUSY SIGNAL AGAIN.
--- NOTE | 2021-02-07 14:30 | NUR ---
DRESSOMG TP RIGHT HEMISPLIT CHANGED USING STERILE TECHNIQUE. DATED.
--- NOTE | 2021-02-07 14:49 | NUR ---
TO DIALYSIS VIA BED.
--- NOTE | 2021-02-07 16:04 | MORECARE ---
CASE MANAGEMENT DISCHARGE SUMMARY PATIENT: RICHA DURAN UNIT: [id number] ADM DATE: 01/31/21 AGE: 56 : 65 SEX: F ROOM/BED: D.9420 AUTHOR: QUANG,DOC PHYSICIAN: REFERRING PHYSICIAN: DIANE GREEN MD DATE OF SERVICE: 02/07/21 Case Management Discharge Planning Summary COMMENTS ENTERED DATE: 02/05/21 16:23 CT COMMENT TYPE: Discharge Planning REVIEWER: Alba Vickers Clinical documentation faxed to [facility] in [place] for possible placement and was denied. APS contacted this morning by ESTRELLA Cronin. Spoke to Edelmira ([phone]) who states that this patient has an open case on file. APS residential sales representative offered 2 SNF facilities for possible placement. Clinical documentation faxed to [facility] ([phone]). Awaiting call back for potential acceptance. CM verified that facility has the capability to transport patient to and from [facility] in [place]. ENTERED DATE: 02/03/21 18:43 CT COMMENT TYPE: Discharge Planning REVIEWER: Titus Pope Nurse Station Conference with Staff Nurse. Nurse stated that the patient is not oriented and does not orient easily. Staff nurse further stated that the patient currently is being evaluated by APS and has been evicted from her home. Staff nurse stated that the patient's confusion has continued to increase throughout the day and the patient is hallucinating. Please see today's nurse notes. POC for patient is her niece, DEYANIRA FRAGOSO @ [phone]. CM will continue to follow and will assist as needed with dc plans/needs. DCP REVIEW SUMMARY ANTICIPATED D/C DATE: EXPECTED LOS : CASE STATUS: DCP Initiated INITIAL REVIEW: 02/07/2021 INITIAL REVIEWER: Aurora Hamilton FINAL DISCHARGE DISPOSITION: : FINAL REVIEWER: FINAL REVIEW DATE: DCP Focus Questions & Answers QUESTION: ANSWER : PATIENT: RICHA DURAN ENCOUNTER: [id number] MEDICAL RECORD#: [id number] ADMISSION DATE: 01/31/2021 DISCHARGE DATE: ATTENDING MD: DIANE HAYES : AGE: 56 MARITAL STATUS: S DC PLAN ID: [id number] FACILITY: [facility] PRINTED ON: 02/07/21 16:04 CT All edits/amendments must be made on the electronic document DICTATION DATE: 02/07/211603 PERCHER: ALMAZ 02/07/211603 RPT#: [id number] DC DATE: STATUS: ADM IN [facility] [address] [place] [address] END OF REPORT
--- NOTE | 2021-02-07 16:18 | MORECARE ---
CASE MANAGEMENT DISCHARGE SUMMARY PATIENT: RICHA DURAN UNIT: [id number] ADM DATE: 01/31/21 AGE: 56 : 65 SEX: F ROOM/BED: D.5940 AUTHOR: QUANG,DOC PHYSICIAN: REFERRING PHYSICIAN: DIANE GREEN MD DATE OF SERVICE: 02/07/21 Case Management Discharge Planning Summary COMMENTS ENTERED DATE: 02/07/21 16:07 CT COMMENT TYPE: Discharge Planning REVIEWER: Aurora Hamilton I received a call from Hugo Keith with [place] [employer], [facility]. He states he received a call from home health nurse, Edelmira Fragoso. States Edelmira was wanting to get patient into [facility]. He states he wanted to make sure patient was not going to be "kicked out on the street." I informed him that we are looking into placement options. Edelmira Fragoso - "niece" - [phone] Edelmira - APS - [phone] ENTERED DATE: 02/07/21 15:58 CT COMMENT TYPE: Discharge Planning REVIEWER: Aurora Alfonso CM received notification from patient's niece, Jodie Fragoso, that she would like me to send updated notes to the [facility] in [place]. She states that she feels like she should meet criteria for a care home facility. I went to the room and spoke with the patient. Patient tells me Edelmira gets her check and pays her bills for her. She tells me that she does need to go to whatever long-term she wants her to go to. She states "I can't take care of myself." Patient's PCP is Dr. Kevin at [facility] in [facility]. She had recently moved from [place] and was seeing a Dominga Larry there. Edelmira tells me on the phone that she in in the process of getting a shot fireman to get POA of patient. She states she had been living with her mother in her step brother's home ([facility]). States [facility] had placed her mother in a long-term in [place], mother's name is Sis Oro. Niece tells me she dialyzes on MWF at [facility] in [place] and [facility] transports her at 1100 (patient was unable to answer me appropriately on this). CM faxed clinical to Lejunior with [facility] and Lejunior visited with patient. Lejunior states she will need a REGINA completed. CM will continue to follow and assist with discharge planning/needs. ENTERED DATE: 02/05/21 16:23 CT COMMENT TYPE: Discharge Planning REVIEWER: Alba Vickers Clinical documentation faxed to [facility] in [place] for possible placement and was denied. APS contacted this morning by ESTRELLA Cronin. Spoke to Edelmira ([phone]) who states that this patient has an open case on file. APS financial representative offered 2 SNF facilities for possible placement. Clinical documentation faxed to [facility] ([phone]). Awaiting call back for potential acceptance. CM verified that facility has the capability to transport patient to and from dialysis in [place]. ENTERED DATE: 02/03/21 18:43 CT COMMENT TYPE: Discharge Planning REVIEWER: Titus Pope Nurse Station Conference with Staff Nurse. Nurse stated that the patient is not oriented and does not orient easily. Staff nurse further stated that the patient currently is being evaluated by APS and has been evicted from her home. Staff nurse stated that the patient's confusion has continued to increase throughout the day and the patient is hallucinating. Please see today's nurse notes. POC for patient is her niece, DEYANIRA FRAGOSO @ [phone]. CM will continue to follow and will assist as needed with dc plans/needs. DCP REVIEW SUMMARY ANTICIPATED D/C DATE: EXPECTED LOS : CASE STATUS: DCP Initiated INITIAL REVIEW: 02/07/2021 INITIAL REVIEWER: Aurora Hamilton FINAL DISCHARGE DISPOSITION: : FINAL REVIEWER: FINAL REVIEW DATE: DCP Focus Questions & Answers QUESTION: ANSWER : PATIENT: RICHA DURAN ENCOUNTER: [id number] MEDICAL RECORD#: [id number] ADMISSION DATE: 01/31/2021 DISCHARGE DATE: ATTENDING MD: DIANE HAYES : AGE: 56 MARITAL STATUS: S DC PLAN ID: [id number] FACILITY: [facility] PRINTED ON: 02/07/21 16:18 CT All edits/amendments must be made on the electronic document DICTATION DATE: 02/07/211617 DOCK OR PIER LABORER: DM 02/07/211617 RPT#: [id number] DC DATE: STATUS: ADM IN [facility] [address] [place] [address] END OF REPORT
--- NOTE | 2021-02-07 18:28 | NUR ---
PT BACK FROM DIALYSIS VIA BED. RR EVEN AND UNLABORED. DENIES NEEDS OR PAIN AT THIS TIME. CALL LIGHT WITHIN REACH. BED ALARM ON AND FUNCTIONING. BED RAILS UP X2.
--- NOTE | 2021-02-07 20:43 | NUR ---
UPON ENTERING ROOM THE IV WAS LAYING ON THE TABLE. ASKED WHY SHE TOOK IT OUT. STATED "YOU KNOW HOW IT IS". REFUSED TO ALLOW THIS NURSE TO LOOK AT THE SITE. NO IV AT THIS TIME.
[2021-02-07 21:20] VITALS: BP 155/53
[2021-02-08] VITALS (7 sets, daily range): BP systolic 140–165; BP diastolic 52–80
[2021-02-08 07:24] LABS: BASOPHILS 0.4 % (0-2); EOSINOPHILS 4.1 % (0-7); HEMATOCRIT 31.3 % (36.0-48.0); HEMOGLOBIN 9.6 g/dL (12-16); IMMATURE GRANULOCYTES 0.3 % (0-5); LYMPHOCYTE ABS# 0.94 10x3/uL (1.18-3.74); LYMPHOCYTES 9.3 % (15-50); MCH 30.4 pg (26.0-34.0); MCHC 30.7 g/dL (31.0-37.0); MCV 99.1 fL (80.0-100.0); MEAN PLATELET VOLUME 10.1 fL (7.4-10.4); MONOCYTES 10.3 % (2-11); NEUTROPHIL ABS# 7.68 10x3/uL (1.56-6.13); NEUTROPHILS 75.6 % (40-80); PLATELET COUNT 216 10x3/uL (130-400); RBC 3.16 10x6/uL (4.00-5.40); RDW 15.8 % (11.5-14.5); WBC 10.2 10x3/uL (4.8-10.8)
[2021-02-08 07:40] LABS: ALBUMIN 3.7 g/dL (3.4-5.0); ANION GAP 18.6 mmol/L (8-16); BILIRUBIN - TOTAL 0.33 mg/dL (0.2-1.3); CALCIUM 9.4 mg/dL (8.5-10.1); CARBON DIOXIDE 26.2 mmol/L (21.0-32.0); CREATININE - SERUM 5.5 mg/dL (0.6-1.3); MAGNESIUM - SERUM 2.6 mg/dL (1.8-2.4); POTASSIUM - SERUM 3.8 mmol/L (3.5-5.1); PROTEIN - SERUM 8.3 g/dL (6.4-8.2)
--- NOTE | 2021-02-08 11:16 | PN ---
PATIENT:RICHA DURAN MEDICAL RECORD: [id number] LOCATION:D. D.212 ADMISSION DATE: 01/31/21 PROGRESS NOTE DATE OF SERVICE: 02/06/2021 SUBJECTIVE: The patient's case was discussed with staff. She has no new complaint. OBJECTIVE: The patient is fully oriented, but makes a bizarre mistake about the month of the year thinking it is January, but when I corrected her, she tells me that it is not January it is December and when I tell her that is incorrect she jumps to May. Otherwise, she seems to be intact. She is telling me that she needs to be on 300 mg a day of Seroquel, which is not an unreasonable dose if you have schizophrenia. However, she tells me she has never seen a psychiatrist and that it is being prescribed for her by her pain doctor. She has no thoughts of harming herself or others. ASSESSMENT: Delirium, resolving. PLAN: The patient shows no evidence of acute or direct dangerousness. I do not have a major problem with her having the Seroquel. It is after all not abusive verbal or addictive, but there seems to be something missing from the story. She has never seen a psychiatrist. It has no psychiatric history, so she says, but she is taking a large amount of antipsychotic medicine and she says it is being prescribed by pain management doctor. These facts just simply do not align in a way that would be very helpful to understand the situation. In the short term, I do not have a problem with what she is taking that is to say I do not have a problem with the Seroquel; however, I think that there are very important pieces here that she is not revealing or perhaps she is not able to reveal. Furthermore, there is no evidence of acute or direct dangerousness so supportive care and then follow up on an outpatient basis with her primary care physician would be a reasonable step. TRANSINT:[id number] Voice Confirmation ID: [id number] DOCUMENT ID: [id number] CHUCKY MACHADO MD at 1116 CC: [id number] DICTATION DATE: 02/06/21 1619 GUN PERFORATOR LOADER: 02/06/21 2201 ADM IN [place] [id number] [place] [address]
--- NOTE | 2021-02-08 16:12 | NUR ---
OT NOTE: PT COMPLETED HAND HYGIENE AT SINK LEVEL WITH CGA. PT COMPLETED HAIR GROOMING WITH SETUP. PT COMPLETED ADL MOB WITH CGA. PT COMPLETED SIT TO STAND WITH CGA. PT IS CONFUSED AND REQUIRED CUES FOR ATTENTION TO TASK. [phone] PLACIDO MADERA COTA
--- NOTE | 2021-02-09 03:18 | MORECARE ---
CASE MANAGEMENT DISCHARGE SUMMARY PATIENT: RICHA DURAN UNIT: [id number] ADM DATE: 01/31/21 AGE: 56 : 65 SEX: F ROOM/BED: D.2120 AUTHOR: QUANG,DOC PHYSICIAN: REFERRING PHYSICIAN: DIANE GREEN MD DATE OF SERVICE: 02/09/21 Case Management Discharge Planning Summary COMMENTS ENTERED DATE: 02/09/21 3:15 CT COMMENT TYPE: Discharge Planning REVIEWER: Shelley Gonzales CM completed getting MD and patient signatures on REGINA . CM faxed REGINA awating determination ENTERED DATE: 02/07/21 16:07 CT COMMENT TYPE: Discharge Planning REVIEWER: Aurora Hamilton I received a call from Hugo Keiht with [place] [employer], [facility]. He states he received a call from home health nurse, Edelmira Fragoso. States Edelmira was wanting to get patient into [facility]. He states he wanted to make sure patient was not going to be "kicked out on the street." I informed him that we are looking into placement options. Edelmira Fragoso - "niece" - [phone] Edelmira - [facility] - [phone] ENTERED DATE: 02/07/21 15:58 CT COMMENT TYPE: Discharge Planning REVIEWER: Aurora Hamilton CM received notification from patient's niece, Jodie Fragoso, that she would like me to send updated notes to the [facility] in [place]. She states that she feels like she should meet criteria for a nursing home facility. I went to the room and spoke with the patient. Patient tells me Edelmira gets her check and pays her bills for her. She tells me that she does need to go to whatever jail she wants her to go to. She states "I can't take care of myself." Patient's P[facility] is Dr. [facility] at [facility]. She had recently moved from [place] and was seeing a Domingasondra Larry there. Edelmira tells me on the phone that she in in the process of getting a forge press operator to get POA of patient. She states she had been living with her mother in her step brother's home ([place]). States [place] had placed her mother in a jail in [place], mother's name is Sis Oro. Niece tells me she dialyzes on MWF at [facility] in [place] and [facility] transports her at 1100 (patient was unable to answer me appropriately on this). ESTRELLA faxed clinical to [place] with [facility] and [place]rose visited with patient. Ambrose states she will need a REGINA completed. CM will continue to follow and assist with discharge planning/needs. ENTERED DATE: 02/05/21 16:23 CT COMMENT TYPE: Discharge Planning REVIEWER: Alba Vickers Clinical documentation faxed to [facility] in [place] for possible placement and was denied. APS contacted this morning by ESTRELLA Cronin. Spoke to Edelmira ([phone]) who states that this patient has an open case on file. APS medical field representative offered 2 SNF facilities for possible placement. Clinical documentation faxed to [facility] ([phone]). Awaiting call back for potential acceptance. CM verified that facility has the capability to transport patient to and from dialysis in [place]. ENTERED DATE: 02/03/21 18:43 CT COMMENT TYPE: Discharge Planning REVIEWER: Titus Pope Nurse Station Conference with Staff Nurse. Nurse stated that the patient is not oriented and does not orient easily. Staff nurse further stated that the patient currently is being evaluated by APS and has been evicted from her home. Staff nurse stated that the patient's confusion has continued to increase throughout the day and the patient is hallucinating. Please see today's nurse notes. POC for patient is her niece, DEYANIRA FRAGOSO @ [phone]. CM will continue to follow and will assist as needed with dc plans/needs. DCP REVIEW SUMMARY ANTICIPATED D/C DATE: EXPECTED LOS : CASE STATUS: DCP Initiated INITIAL REVIEW: 02/07/2021 INITIAL REVIEWER: Aurora Hamilton FINAL DISCHARGE DISPOSITION: : FINAL REVIEWER: FINAL REVIEW DATE: DCP Focus Questions & Answers QUESTION: ANSWER : PATIENT: RICHA DURAN ENCOUNTER: [id number] MEDICAL RECORD#: [id number] ADMISSION DATE: 01/31/2021 DISCHARGE DATE: ATTENDING MD: DIANE HAYES : AGE: 56 MARITAL STATUS: S DC PLAN ID: [id number] FACILITY: [facility] PRINTED ON: 02/09/21 3:18 CT All edits/amendments must be made on the electronic document DICTATION DATE: 02/09/21317 SPEECH COMMUNICATION PROFESSOR: DM 02/09/21317 RPT#: [id number] DC DATE: STATUS: ADM IN [facility] [address] [place] [address] END OF REPORT
[2021-02-09 05:33] VITALS: BP 182/79
[2021-02-09 05:59] LABS: BASOPHILS 0.3 % (0-2); EOSINOPHILS 3.6 % (0-7); HEMATOCRIT 30.5 % (36.0-48.0); HEMOGLOBIN 9.3 g/dL (12-16); IMMATURE GRANULOCYTES 0.4 % (0-5); LYMPHOCYTE ABS# 1.13 10x3/uL (1.18-3.74); MCH 30.3 pg (26.0-34.0); MCHC 30.5 g/dL (31.0-37.0); MCV 99.3 fL (80.0-100.0); MEAN PLATELET VOLUME 9.7 fL (7.4-10.4); MONOCYTES 9.3 % (2-11); NEUTROPHIL ABS# 7.76 10x3/uL (1.56-6.13); NEUTROPHILS 75.4 % (40-80); PLATELET COUNT 258 10x3/uL (130-400); RBC 3.07 10x6/uL (4.00-5.40); RDW 15.6 % (11.5-14.5); WBC 10.3 10x3/uL (4.8-10.8)
[2021-02-09 06:30] LABS: ALBUMIN 3.7 g/dL (3.4-5.0); ANION GAP 20.1 mmol/L (8-16); BILIRUBIN - TOTAL 0.34 mg/dL (0.2-1.3); CREATININE - SERUM 6.6 mg/dL (0.6-1.3); MAGNESIUM - SERUM 2.5 mg/dL (1.8-2.4); POTASSIUM - SERUM 4.1 mmol/L (3.5-5.1); PROTEIN - SERUM 7.9 g/dL (6.4-8.2)
--- NOTE | 2021-02-09 07:00 | NUR ---
RECEIVE SHIFT REPORT. SITTING UP IN CHAIR. DENIES ANY NEEDS AT THIS TIME. WILL CONTINUE POC AND SAFETY PRECAUTIONS. CHAIR ALARM ON.
--- NOTE | 2021-02-09 07:24 | NUR ---
CRITICAL LAB CALLED FOR GLUCOSE OF 501. PATIENT STATES DIABETIC AND CHECKS HER SUGAR 3X DAILY AT HOME. PATIENT ALSO CONFUSED. CALLED MEGHANA COFFEY FOR ORDERS. LOW RESISTANCE HUMILIN SCALE ORDERED. WILL GIVE 12 UNITS OF INSULIN PER PROTOCOL. RECHECK SUGAR PER PROTOCOL.
--- NOTE | 2021-02-09 09:20 | MORECARE ---
CASE MANAGEMENT DISCHARGE SUMMARY PATIENT: RICHA DURAN UNIT: [id number] ADM DATE: 01/31/21 AGE: 56 : 65 SEX: F ROOM/BED: D.4620 AUTHOR: QUANG,DOC PHYSICIAN: REFERRING PHYSICIAN: DIANE GREEN MD DATE OF SERVICE: 02/09/21 Case Management Discharge Planning Summary COMMENTS ENTERED DATE: 02/09/21 9:11 CT COMMENT TYPE: Discharge Planning REVIEWER: Aurora Hamilton UPDATED CLINICAL AND REGINA APPROVAL FOR 60 DAYS FAXED TO [place] WITH [employer] IN [place]. ENTERED DATE: 02/09/21 3:15 CT COMMENT TYPE: Discharge Planning REVIEWER: Shelley Gonzales CM completed getting MD and patient signatures on REGINA . ESTRELLA faxed REGINA awating determination ENTERED DATE: 02/07/21 16:07 CT COMMENT TYPE: Discharge Planning REVIEWER: Aurora Hamilton I received a call from Hugo Keith with [place] [employer], [place] [address]. He states he received a call from home health nurse, Edelmira Fragoso. States Edelmira was wanting to get patient into [facility]. He states he wanted to make sure patient was not going to be "kicked out on the street." I informed him that we are looking into placement options. Edelmira Fragoso - "niece" - [phone] Edelmira - [facility] - [phone] ENTERED DATE: 02/07/21 15:58 CT COMMENT TYPE: Discharge Planning REVIEWER: Aurora Hamilton CM received notification from patient's niece, Jodie Fragoso, that she would like me to send updated notes to the [facility] in [place]. She states that she feels like she should meet criteria for a senior living facility. I went to the room and spoke with the patient. Patient tells me Edelmira gets her check and pays her bills for her. She tells me that she does need to go to whatever long-term she wants her to go to. She states "I can't take care of myself." Patient's PCP is Dr. Kevin at [facility] in [facility]. She had recently moved from [place] and was seeing a Dominga Larry there. Edelmira tells me on the phone that she in in the process of getting a photographer scientific to get POA of patient. She states she had been living with her mother in her step brother's home ([place]). States [place] had placed her mother in a long-term in [place], mother's name is Sis Oro. Niece tells me she dialyzes on MWF at [facility] in [place] and [facility]AT transports her at 1100 (patient was unable to answer me appropriately on this). CM faxed clinical to [place] with [facility] and [place] visited with patient. [place] states she will need a REGINA completed. CM will continue to follow and assist with discharge planning/needs. ENTERED DATE: 02/05/21 16:23 CT COMMENT TYPE: Discharge Planning REVIEWER: Alba Vickers Clinical documentation faxed to [facility] in [place] for possible placement and was denied. APS contacted this morning by ESTRELLA Cronin. Spoke to Edelmira ([phone]) who states that this patient has an open case on file. APS sales representative rural power offered 2 SNF facilities for possible placement. Clinical documentation faxed to [facility] ([phone]). Awaiting call back for potential acceptance. CM verified that facility has the capability to transport patient to and from dialysis in [place]. ENTERED DATE: 02/03/21 18:43 CT COMMENT TYPE: Discharge Planning REVIEWER: Titus Pope Nurse Station Conference with Staff Nurse. Nurse stated that the patient is not oriented and does not orient easily. Staff nurse further stated that the patient currently is being evaluated by APS and has been evicted from her home. Staff nurse stated that the patient's confusion has continued to increase throughout the day and the patient is hallucinating. Please see today's nurse notes. POC for patient is her niece, DEYANIRA FRAGOSO @ [phone]. CM will continue to follow and will assist as needed with dc plans/needs. DCP REVIEW SUMMARY ANTICIPATED D/C DATE: EXPECTED LOS : CASE STATUS: DCP Initiated INITIAL REVIEW: 02/07/2021 INITIAL REVIEWER: Aurora Hamilton FINAL DISCHARGE DISPOSITION: : FINAL REVIEWER: FINAL REVIEW DATE: DCP Focus Questions & Answers QUESTION: ANSWER : PATIENT: RICHA DURAN ENCOUNTER: [id number] MEDICAL RECORD#: [id number] ADMISSION DATE: 01/31/2021 DISCHARGE DATE: ATTENDING MD: DIANE HAYES : AGE: 56 MARITAL STATUS: S DC PLAN ID: [id number] FACILITY: [facility] PRINTED ON: 02/09/21 9:19 CT All edits/amendments must be made on the electronic document DICTATION DATE: 02/09/21918 JOB PLACEMENT SPECIALIST: ALMAZ 02/09/21918 RPT#: [id number] DC DATE: STATUS: ADM IN [facility] [address] [place] [address] END OF REPORT
--- NOTE | 2021-02-09 14:30 | NUR ---
OFF FLOOR FOR DIALYSIS
--- NOTE | 2021-02-09 15:11 | NUR ---
OT NOTE: PT COMPLETED ADL MOB WITH CGA TO BATHROOM. PT COMPLETED CLOTHING MANAGEMENT WITH SBA. PT COMPLETED TOILET HYGIENE WITH SBA. PT COMPLETED HAND HYGIENE AT SINK LEVEL WITH SBA. PT COMPLETED ANGY SOCKS WITH SBA. 5-143 THANK YOU,KATELYNN PALACIO
[2021-02-09 15:26] VITALS: BP 165/64
--- NOTE | 2021-02-09 18:12 | MORECARE ---
CASE MANAGEMENT DISCHARGE SUMMARY PATIENT: RICHA DURAN UNIT: [id number] ADM DATE: 01/31/21 AGE: 56 : 65 SEX: F ROOM/BED: D.3990 AUTHOR: QUANG,DOC PHYSICIAN: REFERRING PHYSICIAN: DIANE GREEN MD DATE OF SERVICE: 02/09/21 Case Management Discharge Planning Summary COMMENTS ENTERED DATE: 02/09/21 18:00 CT COMMENT TYPE: Discharge Planning REVIEWER: Aurora Hamilton CM was informed by nephrology that Edelmira that claims to be patient's niece is actually her home health aide. She would not have any say on patient's long-term facility. CM will need to revisit with patient to see if she is able to consent to a SNF. She is not in the room at this time. ENTERED DATE: 02/09/21 9:11 CT COMMENT TYPE: Discharge Planning REVIEWER: Aurora Hamilton UPDATED CLINICAL AND REGINA APPROVAL FOR 60 DAYS FAXED TO [place] WITH [employer] [facility] IN [place]. ENTERED DATE: 02/09/21 3:15 CT COMMENT TYPE: Discharge Planning REVIEWER: Shelley Gonzales CM completed getting MD and patient signatures on REGINA . CM faxed REGINA awating determination ENTERED DATE: 02/07/21 16:07 CT COMMENT TYPE: Discharge Planning REVIEWER: Aurora Hamilton I received a call from Hugo Keith with [place] [employer], badge [address]. He states he received a call from home health nurse, Edelmira Fragoso. States Edelmira was wanting to get patient into [facility]. He states he wanted to make sure patient was not going to be "kicked out on the street." I informed him that we are looking into placement options. Edelmira Fragoso - "niece" - [phone] Edelmira [facility] - [phone] ENTERED DATE: 02/07/21 15:58 CT COMMENT TYPE: Discharge Planning REVIEWER: Aurora Hamilton CM received notification from patient's niece, Jodie Fragoso, that she would like me to send updated notes to the [facility] in [place]. She states that she feels like she should meet criteria for a long-term facility. I went to the room and spoke with the patient. Patient tells me Edelmira gets her check and pays her bills for her. She tells me that she does need to go to whatever retirement she wants her to go to. She states "I can't take care of myself." Patient's PCP is Dr. Kevin at [facility] in [facility]. She had recently moved from [place] and was seeing a Dominga Larry there. Edelmira tells me on the phone that she in in the process of getting a crown buffer to get POA of patient. She states she had been living with her mother in her step brother's home ([place]). States [place] had placed her mother in a retirement in [place], mother's name is Sis Oro. Niece tells me she dialyzes on MWF at [facility] in [place] and [facility]AT transports her at 1100 (patient was unable to answer me appropriately on this). CM faxed clinical to [place] with [facility] and [place] visited with patient. [place] states she will need a REGINA completed. CM will continue to follow and assist with discharge planning/needs. ENTERED DATE: 02/05/21 16:23 CT COMMENT TYPE: Discharge Planning REVIEWER: Alba Vickers Clinical documentation faxed to [facility] in [place] for possible placement and was denied. APS contacted this morning by ESTRELLA Cronin. Spoke to Edelmira ([phone]) who states that this patient has an open case on file. APS human resources hr representative offered 2 SNF facilities for possible placement. Clinical documentation faxed to [facility] ([phone]). Awaiting call back for potential acceptance. CM verified that facility has the capability to transport patient to and from dialysis in [place]. ENTERED DATE: 02/03/21 18:43 CT COMMENT TYPE: Discharge Planning REVIEWER: Titus Pope Nurse Station Conference with Staff Nurse. Nurse stated that the patient is not oriented and does not orient easily. Staff nurse further stated that the patient currently is being evaluated by APS and has been evicted from her home. Staff nurse stated that the patient's confusion has continued to increase throughout the day and the patient is hallucinating. Please see today's nurse notes. POC for patient is her niece, DEYANIRA FRAGOSO @ [phone]. CM will continue to follow and will assist as needed with dc plans/needs. DCP REVIEW SUMMARY ANTICIPATED D/C DATE: EXPECTED LOS : CASE STATUS: DCP Initiated INITIAL REVIEW: 02/07/2021 INITIAL REVIEWER: Aurora Hamilton FINAL DISCHARGE DISPOSITION: : FINAL REVIEWER: FINAL REVIEW DATE: DCP Focus Questions & Answers QUESTION: ANSWER : PATIENT: RICHA DURAN ENCOUNTER: [id number] MEDICAL RECORD#: [id number] ADMISSION DATE: 01/31/2021 DISCHARGE DATE: ATTENDING MD: DIANE HAYES : AGE: 56 MARITAL STATUS: S DC PLAN ID: [id number] FACILITY: [facility] PRINTED ON: 02/09/21 18:12 CT All edits/amendments must be made on the electronic document DICTATION DATE: 02/09/211811 MANAGEMENT DEVELOPER: ALMAZ 02/09/211811 RPT#: [id number] DC DATE: STATUS: ADM IN [facility] [address] [facility] [place] [address] END OF REPORT
--- NOTE | 2021-02-09 19:30 | NUR ---
INITIAL ROUNDS AND ASSESSMENT COMPLETED. PT UP IN BEDSIDE CHAIR, HAS BEEN OUT IN HALLWAY AND THEN BACK TO ROOM. NONLABORED RESPIRATION ON ROOM AIR. RIGHT CHEST WALL HEMOSPLIT. PT DID HAVE DIALYSIS TODAY.
[2021-02-09 21:03] VITALS: BP 196/62
--- NOTE | 2021-02-09 21:52 | NUR ---
PHONE CALL TO , UPDATE PROVIDED. PT RESTING WITH NO DISTRESS.
--- NOTE | 2021-02-09 22:40 | NUR ---
BEDTIME MEDS GIVEN. FSBS 256, SLIDING SCALE INSULIN GIVEN. HAS BEEN IN/OUT OF ROOM SEVERAL TIMES ASKING NON-ESSENTIAL THINGS, LIKE HOW TO ACCESS HER CONTACT LIST ON HER PHONE AND IF STAFF COULD PLEASE HELP HER LOCATE A LONG HAIRED DOG.
[2021-02-09 23:43] VITALS: BP 164/65
--- NOTE | 2021-02-10 01:53 | NUR ---
PT HAS BEEN OUT OF ROOM SITTING IN A WHEELCHAIR. SHE WILL NOT GET IN HER BED AND TRY TO REST. SHE KEEPS TRYING TO SIT AT THE STATION AND INTERACT WITH THE STAFF. INSTRUCTED PT THAT SHE CANNOT BE AROUND THE COMPUTERS AND PAPERWORK DUE TO PT PRIVACY LAWS. PT NOW SITTING IN WHEELCHAIR WATCHING STAFF FROM A DISTANCE.
[2021-02-10 03:41] VITALS: BP 147/69
[2021-02-10 06:07] LABS: BASOPHILS 0.4 % (0-2); HEMATOCRIT 30.1 % (36.0-48.0); HEMOGLOBIN 9.5 g/dL (12-16); IMMATURE GRANULOCYTES 0.3 % (0-5); LYMPHOCYTE ABS# 1.09 10x3/uL (1.18-3.74); LYMPHOCYTES 9.9 % (15-50); MCH 30.7 pg (26.0-34.0); MCHC 31.6 g/dL (31.0-37.0); MCV 97.4 fL (80.0-100.0); MEAN PLATELET VOLUME 9.9 fL (7.4-10.4); MONOCYTES 10.8 % (2-11); NEUTROPHIL ABS# 8.32 10x3/uL (1.56-6.13); NEUTROPHILS 75.6 % (40-80); PLATELET COUNT 289 10x3/uL (130-400); RBC 3.09 10x6/uL (4.00-5.40); RDW 15.5 % (11.5-14.5)
[2021-02-10 06:14] LABS: ALBUMIN 3.8 g/dL (3.4-5.0); ANION GAP 17.7 mmol/L (8-16); BILIRUBIN - TOTAL 0.36 mg/dL (0.2-1.3); CALCIUM 9.3 mg/dL (8.5-10.1); CARBON DIOXIDE 25.9 mmol/L (21.0-32.0); MAGNESIUM - SERUM 2.2 mg/dL (1.8-2.4); POTASSIUM - SERUM 3.6 mmol/L (3.5-5.1)
[2021-02-10 06:15] LABS: CREATININE - SERUM 4.5 mg/dL (0.6-1.3)
--- NOTE | 2021-02-10 07:00 | NUR ---
REPORT RECEIVED, PATIENT IS RESTING IN CHAIR WITH EYES CLOSED. NO S/S OF DISTRESS OBSERVED, RR EVEN AND UNLABORED ON ROOM AIR. RT CHEST HEMOSPLIT, DRS C/D/I. NO NEEDS EXPRESSED AT THIS TIME. CL IN REACH, BED LOCKED AND LOWERED. WILL CPOC.
[2021-02-10 07:47] VITALS: BP 131/67; BP 139/56
--- NOTE | 2021-02-10 10:19 | NUR ---
I have reviewed this patient and I concur with the Shift Assessment completed by the Licensed Practical Nurse today this shift.
[2021-02-10 11:20] VITALS: BP 162/66
--- NOTE | 2021-02-10 12:06 | NUR ---
PATIENT C/O GENERALIZED PAIN. ADMINISTERED PRN [place] PER ORDERS. PATIENT "NIECE" DEYANIRA FRAGOSO WAS ON THE PHONE WITH PATIENT AND WANTING TO KNOW WHEN SHE CAN COME PICK PATIENT UP. INFORMED DEYANIRA THAT THAT DISCHARGE PLANNING IS IN THE WORKS AND THAT THE POA WILL BE NOTIFIED OF THOSE PLANS.
--- NOTE | 2021-02-10 18:20 | NUR ---
PATIENT UP PUSHING WHEELCHAIR IN HALLWAY.
--- NOTE | 2021-02-10 20:00 | NUR ---
INITIAL ROUNDS AND ASSESSMENT COMPLETED. PT ALERT/ORIENTED AND AMBULATORY. CALL LIGHT IN REACH.
[2021-02-10 21:04] VITALS: BP 195/71
[2021-02-11] VITALS (7 sets, daily range): BP systolic 121–163; BP diastolic 42–65
--- NOTE | 2021-02-11 07:00 | NUR ---
RECEIVED REPORT. ASSUMED CARE OF PATIENT. PATIENT RESTING IN BED WITH EYES OPEN. RESP EVEN AND UNLABORED. WHITE BOARD UPDATED, BEDSIDE SHIFT REPORT COMPLETE. PATIENT HAPPY HER FSBS IS ONLY 78 THIS AM AND REPORTS SHE SLEPT WELL LAST PM. NO DISTRESS. CALL LIGHT WITHIN REACH.
--- NOTE | 2021-02-11 08:56 | NUR ---
MEDICATED FOR PAIN AT THIS TIME. NO DISTRESS.
--- NOTE | 2021-02-11 11:24 | NUR ---
FSBS 318. 20 UNITS HUMALOG ADMINISTERED PER SLIDING SCALE AT THIS TIME. NO DISTRESS.
--- NOTE | 2021-02-11 13:59 | NUR ---
PROVIDED PATIENT NEW [employer] IN AN ATTEMPT TO COLLECT URINE FOR UDS THAT WAS ORDERED DAYS AGO. PATIENT ALERT/ORIENTED, AND AMBULATORY. PATIENT IS RESTING WITH EYES CLOSED AT THIS TIME. [employer] HAS NOT BEEN USED YET, CONTINUING TO WAIT FOR PATIENT TO PRODUCE URINE SAMPLE.
--- NOTE | 2021-02-11 15:52 | NUR ---
FSBS 241. 12 UNITS HUMALOG ADMINISTERED PER SLIDING SCALE. NO DISTRESS.
[2021-02-11 17:52] LABS: UDS - AMPHET NEGATIVE QUAL (NEGATIVE); UDS - BARB NEGATIVE QUAL (NEGATIVE); UDS - BENZO NEGATIVE QUAL (NEGATIVE); UDS - COCAINE NEGATIVE QUAL (NEGATIVE); UDS - OPIATE POSITIVE QUAL (NEGATIVE); UDS - PCP NEGATIVE QUAL (NEGATIVE); UDS - THC NEGATIVE QUAL (NEGATIVE)
--- NOTE | 2021-02-11 20:20 | NUR ---
INITIAL ROUNDS AND ASSESSMENT COMPLETED. NO DISTRESS. RESTING IN BED. CALL LIGHT IN REACH.
--- NOTE | 2021-02-12 05:57 | NUR ---
PT HAS SLEPT WELL SINCE RECIEVING HER BEDTIME MEDS. NO DISTRESS. CALL LIGHT IN REACH. PT STATES SHE TAKES HALDOL AT BEDTIME EVERY NIGHT TO HELP HER REST. PHARMACY CORRECTION SUBMITTED TO RETIME FOR BEDTIME.
--- NOTE | 2021-02-12 07:00 | NUR ---
RECEIVED REPORT. ASSUMED CARE OF PATIENT. PATIENT SITTING TO SIDE OF BED. CALL LIGHT WITHIN REACH. TIE BOARD UPDATED, BEDSIDE SHIFT REPORT COMPLETE. NO DISTRESS.
[2021-02-12 08:25] VITALS: BP 154/70
--- NOTE | 2021-02-12 08:31 | NUR ---
DRESSING TO LEFT HEEL COMPLETE AT THIS TIME. TOLERATED DRESSING CHANGE WELL. LEFT HEEL ULCER, 1.2X1.2X1.1 WITH SURROUNDING ERYTHEMA THAT IS BLANCHABLE.
--- NOTE | 2021-02-12 08:32 | NUR ---
MEDICATED FOR PAIN AT THIS TIME. NO DISTRESS.
[2021-02-12 11:19] LABS: BASOPHILS 0.3 % (0-2); EOSINOPHILS 3.5 % (0-7); HEMATOCRIT 29.4 % (36.0-48.0); IMMATURE GRANULOCYTES 0.1 % (0-5); LYMPHOCYTE ABS# 1.01 10x3/uL (1.18-3.74); LYMPHOCYTES 9.7 % (15-50); MCHC 30.6 g/dL (31.0-37.0); MEAN PLATELET VOLUME 9.6 fL (7.4-10.4); MONOCYTES 11.1 % (2-11); NEUTROPHIL ABS# 7.81 10x3/uL (1.56-6.13); NEUTROPHILS 75.3 % (40-80); PLATELET COUNT 333 10x3/uL (130-400); RDW 15.6 % (11.5-14.5); WBC 10.4 10x3/uL (4.8-10.8)
[2021-02-12 11:37] LABS: ALBUMIN 3.5 g/dL (3.4-5.0); ANION GAP 20.5 mmol/L (8-16); BILIRUBIN - TOTAL 0.29 mg/dL (0.2-1.3); CALCIUM 8.5 mg/dL (8.5-10.1); CARBON DIOXIDE 24.4 mmol/L (21.0-32.0); CREATININE - SERUM 7.9 mg/dL (0.6-1.3); POTASSIUM - SERUM 3.9 mmol/L (3.5-5.1); PROTEIN - SERUM 7.2 g/dL (6.4-8.2)
--- NOTE | 2021-02-12 11:54 | NUR ---
FSBS 271. 16 UNITS HUMALOG ADMINISTERED PER SLIDING SCALE AT THIS TIME. NO DISTRESS.
[2021-02-12 12:46] VITALS: BP 152/55
--- NOTE | 2021-02-12 15:00 | NUR ---
PATIENT LEFT UNIT FOR DIALYSIS AT THIS TIME. NO DISTRESS.
--- NOTE | 2021-02-12 15:19 | NUR ---
OT NOTE: PT COMPLETED ADL MOBILITY WITH WITH CGA. PT COMPLETED ANGY/DOFF SOCKS WITH SBA. PT COMPLETED FACE AND HAND HYGIENE AT SINK LEVEL WITH SBA. PT COMPLETED HAIR GROOMING WITH SETUP. [phone] THANK YOU,KATELYNN PALACIO
[2021-02-12 17:01] VITALS: BP 134/57
--- NOTE | 2021-02-12 17:34 | NUR ---
FSBS 203. 12 UNITS HUMALOG ADMINISTERED PER SLIDING SCALE.
--- NOTE | 2021-02-12 17:35 | NUR ---
PATIENT CONSUMING PM MEAL AT THIS TIME, BACK FROM DIALYSIS. NO DISTRESS.
--- NOTE | 2021-02-12 17:38 | NUR ---
MEDICATED FOR PAIN AT THIS TIME. NO DISTRESS.
[2021-02-12 20:00] VITALS: BP 152/51
--- NOTE | 2021-02-12 20:16 | NUR ---
RECIEVED UP ON SIDE OF BED. ALERT AND ORIENTED X4. UP AD TERRI. NO IV ACCESS. HEMOSPLIT TO TO RT CHEST. DEIES ANYT NEEDS AT THIS TIME.
[2021-02-13] VITALS: BP 150/63
[2021-02-13 04:00] VITALS: BP 135/61
[2021-02-13 05:20] LABS: BASOPHILS 0.2 % (0-2); EOSINOPHILS 3.8 % (0-7); HEMATOCRIT 28.2 % (36.0-48.0); HEMOGLOBIN 8.7 g/dL (12-16); IMMATURE GRANULOCYTES 0.1 % (0-5); MCH 30.4 pg (26.0-34.0); MCHC 30.9 g/dL (31.0-37.0); MCV 98.6 fL (80.0-100.0); MEAN PLATELET VOLUME 9.8 fL (7.4-10.4); MONOCYTES 8.4 % (2-11); NEUTROPHIL ABS# 6.18 10x3/uL (1.56-6.13); NEUTROPHILS 69.5 % (40-80); PLATELET COUNT 300 10x3/uL (130-400); RBC 2.86 10x6/uL (4.00-5.40); RDW 15.5 % (11.5-14.5); WBC 8.9 10x3/uL (4.8-10.8)
[2021-02-13 05:41] LABS: ALBUMIN 3.1 g/dL (3.4-5.0); BILIRUBIN - TOTAL 0.23 mg/dL (0.2-1.3); CALCIUM 8.5 mg/dL (8.5-10.1); CARBON DIOXIDE 26.5 mmol/L (21.0-32.0); CREATININE - SERUM 6.5 mg/dL (0.6-1.3); POTASSIUM - SERUM 3.5 mmol/L (3.5-5.1); PROTEIN - SERUM 7.1 g/dL (6.4-8.2)
--- NOTE | 2021-02-13 06:09 | NUR ---
BLOOD SUGAR 60 THIS AM. SNACK GIVEN.
[2021-02-13 07:32] VITALS: BP 149/58
--- NOTE | 2021-02-13 07:51 | NUR ---
PT RECEIVED SITTING ON SIDE OF BED ASKING FOR MORNING MEDS. MEDS GIVEN AND PAIN PILL FOR BACK PAIN 05/15.
[2021-02-13 11:37] VITALS: BP 144/41
--- NOTE | 2021-02-13 13:06 | NUR ---
Nutrition Reassessment/Follow-up: Eating well. HD yesterday. Nursing reports wound to L heel. Awaiting placement. Diet: Renal ADA, Nepro QD PO intake: 81% avg x 4 meals No new wt; last wt: 227# (02/01) Labs noted: K+ 3.5, Glu 122, Alb 3.1 Meds noted: Lantus, Humalog, Pepcid, electrolyte protocol Nutrition Goals: -PO intake >=75% avg intake of meals/snacks -Meet est fluid needs without fluid overload -Stable dry wt Nutrition Intervention: -Nutrition needs unchanged since initial assessment; no new wt available. -Rec consider Roger BID to promote wound healing if pt agreeable. -Need new wt. -RD will follow up within 7 days if pt still admitted.
--- NOTE | 2021-02-13 14:47 | NUR ---
OT NOTE: PT COMPLETED ADL MOB WITH CGA. PT HAD C/O OF BACK PAIN 05/15. NURSING AWARE. PT COMPLETED TOILET HYGIENE AND CLOTHING MANAGEMENT WITH SBA/CGA. PT COMPLETED ANGY/DOFF SOCK AT EOB WITH SBA. PT COMPLETED HAIR GROOMING WITH SBA. PT COMPLETED HYGIENE TASKS WITH SBA AT SINK LEVEL. 0-408 THANK YOU,KATELYNN PALACIO
--- NOTE | 2021-02-13 15:40 | NUR ---
CALL RECEIVED FROM [employer] BUS STATING NO DOWELING MACHINE OPERATOR AT [facility] WILL NEED TO BE TOMORROW FOR TRANSPORTATION. NOTE LEFT WITH PHYSICIAN SCRIBE WHO IS IN MEETING AT [facility].
--- NOTE | 2021-02-13 19:19 | NUR ---
RECIEVED DSITTING UP ON SIDE OF BED. ALERT AND ORIENTED X4. UP AD TERRI. DENIES ANY NEEDS AT THIS TIME.
[2021-02-13 23:13] VITALS: BP 155/51
[2021-02-14 03:05] VITALS: BP 166/68
[2021-02-14 05:26] LABS: BASOPHILS 0.2 % (0-2); EOSINOPHILS 3.4 % (0-7); HEMATOCRIT 29.8 % (36.0-48.0); HEMOGLOBIN 9.2 g/dL (12-16); IMMATURE GRANULOCYTES 0.2 % (0-5); LYMPHOCYTE ABS# 1.22 10x3/uL (1.18-3.74); LYMPHOCYTES 13.3 % (15-50); MCH 30.5 pg (26.0-34.0); MCHC 30.9 g/dL (31.0-37.0); MCV 98.7 fL (80.0-100.0); MEAN PLATELET VOLUME 9.8 fL (7.4-10.4); MONOCYTES 9.5 % (2-11); NEUTROPHIL ABS# 6.75 10x3/uL (1.56-6.13); NEUTROPHILS 73.4 % (40-80); PLATELET COUNT 320 10x3/uL (130-400); RBC 3.02 10x6/uL (4.00-5.40); RDW 15.7 % (11.5-14.5); WBC 9.2 10x3/uL (4.8-10.8)
[2021-02-14 05:57] VITALS: BP 159/52
[2021-02-14 06:01] LABS: ALBUMIN 3.3 g/dL (3.4-5.0); ANION GAP 17.7 mmol/L (8-16); BILIRUBIN - TOTAL 0.32 mg/dL (0.2-1.3); CALCIUM 8.9 mg/dL (8.5-10.1); CARBON DIOXIDE 25.4 mmol/L (21.0-32.0); CREATININE - SERUM 7.8 mg/dL (0.6-1.3); PROTEIN - SERUM 7.4 g/dL (6.4-8.2)
[2021-02-14 06:04] LABS: POTASSIUM - SERUM 4.1 mmol/L (3.5-5.1)
[2021-02-14 08:06] VITALS: BP 163/57
--- NOTE | 2021-02-14 09:00 | NUR ---
LEAVING FOR DIALYSIS BY W/C. WILL CONT. PLAN OF CARE.
--- NOTE | 2021-02-14 09:34 | MORECARE ---
CASE MANAGEMENT DISCHARGE SUMMARY PATIENT: RICHA DURAN UNIT: [id number] ADM DATE: 01/31/21 AGE: 56 : 65 SEX: F ROOM/BED: D.9023 AUTHOR: QUANG,DOC PHYSICIAN: REFERRING PHYSICIAN: DIANE GREEN MD DATE OF SERVICE: 02/14/21 Case Management Discharge Planning Summary COMMENTS ENTERED DATE: 02/14/21 9:18 CT COMMENT TYPE: Discharge Planning REVIEWER: Aurora Hamilton CM met with patient and she states she is going to her niece's home (Edelmira Fragoso). I asked her if Edelmira was her niece or her home health aide. Patient states "no, she's my niece." She is going to have [employer] transportation pick her up at 2PM to go to [address] [place] [address] in [place]. I have notified Suni Bender and Le of plan to return home. Attempted to call "niece" with no answer. Home today. Patient states she has a walker and needs no additional DME. ENTERED DATE: 02/09/21 18:00 CT COMMENT TYPE: Discharge Planning REVIEWER: Aurora Hamilton CM was informed by nephrology that Edelmira that claims to be patient's niece is actually her home health aide. She would not have any say on patient's halfway facility. CM will need to revisit with patient to see if she is able to consent to a SNF. She is not in the room at this time. ENTERED DATE: 02/09/21 9:11 CT COMMENT TYPE: Discharge Planning REVIEWER: Aurora Hamilton UPDATED CLINICAL AND REGINA APPROVAL FOR 60 DAYS FAXED TO LE WITH [employer] IN [place]. ENTERED DATE: 02/09/21 3:15 CT COMMENT TYPE: Discharge Planning REVIEWER: Shelley Gonzales CM completed getting MD and patient signatures on REGINA . CM faxed REGINA awating determination ENTERED DATE: 02/07/21 16:07 CT COMMENT TYPE: Discharge Planning REVIEWER: Aurora Hamilton I received a call from Hugo Keith with [place] [employer], [address]. He states he received a call from home health nurse, Edelmira Fragoso. States Edelmira was wanting to get patient into [facility]. He states he wanted to make sure patient was not going to be "kicked out on the street." I informed him that we are looking into placement options. Edelmira Fragoso - "niece" - [phone] Edelmira [facility] - [phone] ENTERED DATE: 02/07/21 15:58 CT COMMENT TYPE: Discharge Planning REVIEWER: Aurora Hamilton CM received notification from patient's niece, Jodie Fragoso, that she would like me to send updated notes to the [facility] in [place]. She states that she feels like she should meet criteria for a halfway facility. I went to the room and spoke with the patient. Patient tells me Edelmira gets her check and pays her bills for her. She tells me that she does need to go to whatever custodial she wants her to go to. She states "I can't take care of myself." Patient's PCP is Dr. Kevin at [facility] in [facility]. She had recently moved from [place] and was seeing a Dominga Larry there. Edelmira tells me on the phone that she in in the process of getting a train starter to get POA of patient. She states she had been living with her mother in her step brother's home ([place]). States Glenroy had placed her mother in a custodial in [place], mother's name is Sis Oro. Niece tells me she dialyzes on MWF at [facility] in [place] and [facility] transports her at 1100 (patient was unable to answer me appropriately on this). CM faxed clinical to [place] with [facility] and [place] visited with patient. [place] states she will need a REGINA completed. CM will continue to follow and assist with discharge planning/needs. ENTERED DATE: 02/05/21 16:23 CT COMMENT TYPE: Discharge Planning REVIEWER: Alba Vickers Clinical documentation faxed to [facility] in [place] for possible placement and was denied. APS contacted this morning by ESTRELLA Cronin. Spoke to Edelmira ([phone]) who states that this patient has an open case on file. APS internet sales representative offered 2 SNF facilities for possible placement. Clinical documentation faxed to [facility] ([phone]). Awaiting call back for potential acceptance. CM verified that facility has the capability to transport patient to and from dialysis in [place]. ENTERED DATE: 02/03/21 18:43 CT COMMENT TYPE: Discharge Planning REVIEWER: Titus Pope Nurse Station Conference with Staff Nurse. Nurse stated that the patient is not oriented and does not orient easily. Staff nurse further stated that the patient currently is being evaluated by APS and has been evicted from her home. Staff nurse stated that the patient's confusion has continued to increase throughout the day and the patient is hallucinating. Please see today's nurse notes. POC for patient is her niece, DEYANIRA FRAGOSO @ [phone]. CM will continue to follow and will assist as needed with dc plans/needs. DCP REVIEW SUMMARY ANTICIPATED D/C DATE: EXPECTED LOS : CASE STATUS: DCP Initiated INITIAL REVIEW: 02/07/2021 INITIAL REVIEWER: Aurora Hamilton FINAL DISCHARGE DISPOSITION: : FINAL REVIEWER: FINAL REVIEW DATE: DCP Focus Questions & Answers QUESTION: ANSWER : PATIENT: RICHA DURAN ENCOUNTER: [id number] MEDICAL RECORD#: [id number] ADMISSION DATE: 01/31/2021 DISCHARGE DATE: ATTENDING MD: DIANE HAYES : AGE: 56 MARITAL STATUS: S DC PLAN ID: [id number] FACILITY: [facility] PRINTED ON: 02/14/21 9:33 CT All edits/amendments must be made on the electronic document DICTATION DATE: 02/14/21932 SOLAR SYSTEM INSTALLER: ALMAZ 02/14/21932 RPT#: [id number] DC DATE: STATUS: ADM IN [facility] [address] [place] [address] END OF REPORT
[2021-02-14] MEDS ORDERED: SEROQUEL100 MG PO (10:32)
[2021-02-14] MEDS ORDERED: LASIX80 MG PO (10:32)
[2021-02-14] MEDS ORDERED: LANTUS SOL100 UNIT/2 SC (10:32)
[2021-02-14] MEDS ORDERED: BAYER CHEWABLE81 MG PO (10:32)
[2021-02-14] MEDS ORDERED: NEXIUM40 MG PO (10:32)
[2021-02-14] MEDS ORDERED: GABAPENTIN300 MG PO (10:32)
[2021-02-14] MEDS ORDERED: VASCEPA1 GM PO (10:32)
[2021-02-14] MEDS ORDERED: HYDROCODON-ACE1 EA10 PO (11:47)
[2021-02-14] MEDS ORDERED: ATIVAN1 MG PO (11:47)
--- NOTE | 2021-02-14 12:47 | MORECARE ---
CASE MANAGEMENT DISCHARGE SUMMARY PATIENT: RICHA DURAN UNIT: [id number] ADM DATE: 01/31/21 AGE: 56 : 65 SEX: F ROOM/BED: D.3880 AUTHOR: QUANG,DOC PHYSICIAN: REFERRING PHYSICIAN: DIANE GREEN MD DATE OF SERVICE: 02/14/21 Case Management Discharge Planning Summary COMMENTS ENTERED DATE: 02/14/21 12:42 CT COMMENT TYPE: Discharge Planning REVIEWER: Aurora Alfonso Edelmira has called me and states she received all her home medicines from the pharmacy, but will need her Ativan and hydrocodone as well. I spoke with Ayleen and she will order 3 days of these medications in a hand Rx, Edelmira Fragoso informed. Edelmira states she has an appointment with her PCP in 3 days. Home with Edelmira Fragoso via [employer] transportation. ENTERED DATE: 02/14/21 9:18 CT COMMENT TYPE: Discharge Planning REVIEWER: Aurora Hamilton CM met with patient and she states she is going to her niece's home (Edelmira Fragoso). I asked her if Edelmira was her niece or her home health aide. Patient states "no, she's my niece." She is going to have [employer] transportation pick her up at 2PM to go to [address] [place] [address] in [place]. I have notified Suni Bender and Le of plan to return home. Attempted to call "niece" with no answer. Home today. Patient states she has a walker and needs no additional DME. ENTERED DATE: 02/09/21 18:00 CT COMMENT TYPE: Discharge Planning REVIEWER: Aurora Hamilton CM was informed by nephrology that Edelmira that claims to be patient's niece is actually her home health aide. She would not have any say on patient's snf facility. CM will need to revisit with patient to see if she is able to consent to a SNF. She is not in the room at this time. ENTERED DATE: 02/09/21 9:11 CT COMMENT TYPE: Discharge Planning REVIEWER: Aurora Hamilton UPDATED CLINICAL AND REGINA APPROVAL FOR 60 DAYS FAXED TO [place] WITH [facility] [employer] [facility] IN [place]. ENTERED DATE: 02/09/21 3:15 CT COMMENT TYPE: Discharge Planning REVIEWER: Shelley Gonzales CM completed getting MD and patient signatures on REGINA . ESTRELLA faxed REGINA awating determination ENTERED DATE: 02/07/21 16:07 CT COMMENT TYPE: Discharge Planning REVIEWER: Aurora Hamilton I received a call from Hugo Keith with [place] [employer], [place] [address]. He states he received a call from home health nurse, Edelmira Fragoso. States Edelmira was wanting to get patient into [facility]. He states he wanted to make sure patient was not going to be "kicked out on the street." I informed him that we are looking into placement options. Edelmira Fragoso - "niece" - [phone] Edelmira [facility] - [phone] ENTERED DATE: 02/07/21 15:58 CT COMMENT TYPE: Discharge Planning REVIEWER: Aurora Hamilton CM received notification from patient's niece, Jodie Fragoso, that she would like me to send updated notes to the [facility] in [place]. She states that she feels like she should meet criteria for a snf facility. I went to the room and spoke with the patient. Patient tells me Edelmira gets her check and pays her bills for her. She tells me that she does need to go to whatever intermediate she wants her to go to. She states "I can't take care of myself." Patient's PCP is Dr. Kevin at [facility] in [facility]. She had recently moved from [place] and was seeing a Dominga Larry there. Edelmira tells me on the phone that she in in the process of getting a national service officer to get POA of patient. She states she had been living with her mother in her step brother's home ([place]). States Glenroy had placed her mother in a intermediate in [place], mother's name is Sis Oro. Niece tells me she dialyzes on MWF at [facility] in [place] and [facility] transports her at 1100 (patient was unable to answer me appropriately on this). CM faxed clinical to [place] with [facility] and Le visited with patient. [place] states she will need a REGINA completed. CM will continue to follow and assist with discharge planning/needs. ENTERED DATE: 02/05/21 16:23 CT COMMENT TYPE: Discharge Planning REVIEWER: Alba Vickers Clinical documentation faxed to [facility] in [place] for possible placement and was denied. APS contacted this morning by ESTRELLA Cronin. Spoke to Edelmira ([phone]) who states that this patient has an open case on file. APS sales development representative offered 2 SNF facilities for possible placement. Clinical documentation faxed to [facility] ([phone]). Awaiting call back for potential acceptance. ESTRELLA verified that facility has the capability to transport patient to and from dialysis in [place]. ENTERED DATE: 02/03/21 18:43 CT COMMENT TYPE: Discharge Planning REVIEWER: Titus Pope Nurse Station Conference with Staff Nurse. Nurse stated that the patient is not oriented and does not orient easily. Staff nurse further stated that the patient currently is being evaluated by APS and has been evicted from her home. Staff nurse stated that the patient's confusion has continued to increase throughout the day and the patient is hallucinating. Please see today's nurse notes. POC for patient is her niece, DEYANIRA FRAGOSO @ [phone]. CM will continue to follow and will assist as needed with dc plans/needs. DCP REVIEW SUMMARY ANTICIPATED D/C DATE: EXPECTED LOS : CASE STATUS: DCP Initiated INITIAL REVIEW: 02/07/2021 INITIAL REVIEWER: Aurora Hamilton FINAL DISCHARGE DISPOSITION: : FINAL REVIEWER: FINAL REVIEW DATE: DCP Focus Questions & Answers QUESTION: ANSWER : PATIENT: RICHA DURAN ENCOUNTER: [id number] MEDICAL RECORD#: [id number] ADMISSION DATE: 01/31/2021 DISCHARGE DATE: ATTENDING MD: DIANE HAYES : AGE: 56 MARITAL STATUS: S DC PLAN ID: [id number] FACILITY: [facility] PRINTED ON: 02/14/21 12:47 CT All edits/amendments must be made on the electronic document DICTATION DATE: 02/14/211246 ASBESTOS WORKER: ALMAZ 02/14/21 124 RPT#: [id number] DC DATE: STATUS: ADM IN [facility] [address] [place] [address] END OF REPORT
--- NOTE | 2021-02-14 13:17 | NUR ---
DC PLANS GIVEN. UNDERSTANDING VOICED. ESCORTED TO CAR BY W/C.
--- NOTE | 2021-02-14 14:20 | NUR ---
OT NOTE: PT HAD C/O BACK PAIN. NURSING AWARE. PT COMPLETED SIT TO STAND WITH SBA. PT COMPLETED ADL MOB TO TOILET WITH SBA. PT COMPLETED UB HYGIENE TASKS AT SINK LEVEL WITH SBA. PT COMPLETED HAIR GROOMING WITH SPV. PT COMPLETED SITTING BALANCE WITH SBA WHILE ANGY/DOFF SOCK WITH SBA. [phone] THANK YOU,KATELYNN PALACIO
--- NOTE | 2021-02-14 15:55 | MORECARE ---
CASE MANAGEMENT DISCHARGE SUMMARY PATIENT: RICHA DURAN UNIT: [id number] ADM DATE: 01/31/21 AGE: 56 : 65 SEX: F ROOM/BED: D.7490 AUTHOR: QUANG,DOC PHYSICIAN: REFERRING PHYSICIAN: DIANE GREEN MD DATE OF SERVICE: 02/14/21 Case Management Discharge Planning Summary COMMENTS ENTERED DATE: 02/14/21 15:42 CT COMMENT TYPE: Discharge Planning REVIEWER: Aurora Hamilton LATE ENTRY - DID CALL PATIENT'S PLASTICS DESIGN ENGINEER, ALVIN, WITH APS AND INFORMED HER OF DISCHARGE HOME WITH ALVIN FRAGOSO TODAY. APS WORKER STATES SHE IS AWARE THAT SHE IS DISCHARGING TO LIVE WITH ALVIN FRAGOSO AND HAS HER ADDRESS AND WILL DO A WELL CHECK. STATES SHE HAS SPOKEN WITH ALVIN MTZY YESTERDAY. UPDATES FAXED TO [phone]. ENTERED DATE: 02/14/21 12:42 CT COMMENT TYPE: Discharge Planning REVIEWER: Aurora Alfonso Kaufmanley has called me and states she received all her home medicines from the pharmacy, but will need her Ativan and hydrocodone as well. I spoke with Ayleen and she will order 3 days of these medications in a hand Rx, Alvinrosalba Mtzy informed. Alvin states she has an appointment with her PCP in 3 days. Home with Alvin Mtzy via [employer] transportation. ENTERED DATE: 02/14/21 9:18 CT COMMENT TYPE: Discharge Planning REVIEWER: Aurora Hamilton CM met with patient and she states she is going to her niece's home (Alvin Fragoso). I asked her if Alvin was her niece or her home health aide. Patient states "no, she's my niece." She is going to have [employer] transportation pick her up at 2PM to go to [address] [place] [address] in [place]. I have notified Suni Bender and Le of plan to return home. Attempted to call "niece" with no answer. Home today. Patient states she has a walker and needs no additional DME. ENTERED DATE: 02/09/21 18:00 CT COMMENT TYPE: Discharge Planning REVIEWER: Aurora Hamilton CM was informed by nephrology that Alvin that claims to be patient's niece is actually her home health aide. She would not have any say on patient's assisted facility. CM will need to revisit with patient to see if she is able to consent to a SNF. She is not in the room at this time. ENTERED DATE: 02/09/21 9:11 CT COMMENT TYPE: Discharge Planning REVIEWER: Aurora Hamilton UPDATED CLINICAL AND REGINA APPROVAL FOR 60 DAYS FAXED TO LE WITH [facility] IN [place]. ENTERED DATE: 02/09/21 3:15 CT COMMENT TYPE: Discharge Planning REVIEWER: Shelley Gonzales CM completed getting MD and patient signatures on REGINA . ESTRELLA faxed REGINA awating determination ENTERED DATE: 02/07/21 16:07 CT COMMENT TYPE: Discharge Planning REVIEWER: Aurora Hamilton I received a call from Hugo Keith with [place] [employer], badge 510. He states he received a call from home health nurse, Alvin Fragoso. States Alvin was wanting to get patient into [facility]. He states he wanted to make sure patient was not going to be "kicked out on the street." I informed him that we are looking into placement options. Alvin Fragoso - "niece" - [phone] Alvin [facility] - [phone] ENTERED DATE: 02/07/21 15:58 CT COMMENT TYPE: Discharge Planning REVIEWER: Aurora Hamilton CM received notification from patient's niece, Jodie Fragoso, that she would like me to send updated notes to the [facility] in [place]. She states that she feels like she should meet criteria for a assisted facility. I went to the room and spoke with the patient. Patient tells me Alvin gets her check and pays her bills for her. She tells me that she does need to go to whatever retirement she wants her to go to. She states "I can't take care of myself." Patient's PCP is Dr. Kevin at [facility] in [facility]. She had recently moved from [place] and was seeing a Dominga Larry there. Alvin tells me on the phone that she in in the process of getting a rn intake to get POA of patient. She states she had been living with her mother in her step brother's home ([place]). States Glenroy had placed her mother in a retirement in [place], mother's name is Sis Oro. Niece tells me she dialyzes on MWF at [facility] dialysis in [place] and [facility] transports her at 1100 (patient was unable to answer me appropriately on this). CM faxed clinical to [place] with [facility] and Le visited with patient. Le states she will need a REGINA completed. CM will continue to follow and assist with discharge planning/needs. ENTERED DATE: 02/05/21 16:23 CT COMMENT TYPE: Discharge Planning REVIEWER: Alba Vickers Clinical documentation faxed to [facility] in [place] for possible placement and was denied. APS contacted this morning by ESTRELLA Cronin. Spoke to Alvin ([phone]) who states that this patient has an open case on file. APS product representative offered 2 SNF facilities for possible placement. Clinical documentation faxed to [facility] ([phone]). Awaiting call back for potential acceptance. CM verified that facility has the capability to transport patient to and from dialysis in [place]. ENTERED DATE: 02/03/21 18:43 CT COMMENT TYPE: Discharge Planning REVIEWER: Titus Pope Nurse Station Conference with Staff Nurse. Nurse stated that the patient is not oriented and does not orient easily. Staff nurse further stated that the patient currently is being evaluated by APS and has been evicted from her home. Staff nurse stated that the patient's confusion has continued to increase throughout the day and the patient is hallucinating. Please see today's nurse notes. POC for patient is her niece, DEYANIRA FRAGOSO @ [phone]. CM will continue to follow and will assist as needed with dc plans/needs. DCP REVIEW SUMMARY ANTICIPATED D/C DATE: EXPECTED LOS : CASE STATUS: DCP Initiated INITIAL REVIEW: 02/07/2021 INITIAL REVIEWER: Aurora Hamilton FINAL DISCHARGE DISPOSITION: : FINAL REVIEWER: FINAL REVIEW DATE: DCP Focus Questions & Answers QUESTION: ANSWER : PATIENT: RICHA DURAN ENCOUNTER: [id number] MEDICAL RECORD#: [id number] ADMISSION DATE: 01/31/2021 DISCHARGE DATE: 02/14/2021 ATTENDING MD: DIANE HAYES : AGE: 56 MARITAL STATUS: S DC PLAN ID: [id number] FACILITY: [facility] PRINTED ON: 02/14/21 15:55 CT All edits/amendments must be made on the electronic document DICTATION DATE: 02/14/211554 NC MANAGER: ALMAZ 02/14/211554 RPT#: [id number] DC DATE:02/14/21 STATUS: DIS IN [facility] [address] [place] [address] END OF REPORT
== END 2021-02-14 13:17 | disposition home or self-care (01) | DRG 640 ==
LOC: D.ER 21:18 → D.ICU 23:03 → D.M2 23:03
PROVIDERS: Internal Medicine Nephrology; ADMIT Emergency Medicine; ATTEND Emergency Medicine
PROC: 5A1D70Z Performance of Urinary Filtration, Intermittent, Less than 6 Hours Per Day (ICD-10-PCS; principal; 2021-02-02)
DX: E87.5 Hyperkalemia (principal); N18.6 End stage renal disease; G93.41 Metabolic encephalopathy; I12.0 Hypertensive chronic kidney disease with stage 5 chronic kidney disease or end stage renal disease; Z99.2 Dependence on renal dialysis; Z91.15 Patient's noncompliance with renal dialysis; J44.9 Chronic obstructive pulmonary disease, unspecified; D63.1 Anemia in chronic kidney disease; D11.9 Benign neoplasm of major salivary gland, unspecified

== ENCOUNTER 2021-03-13 14:27 | Observation (INO) | payer MEDICARE, MEDICAID ==
[~2021-03-13 14:27] MED LIST: ATIVAN1 MG PO; BAYER CHEWABLE81 MG PO; CEPHALEXIN 500 MG; CLONIDINE HCL0.1 MG; FLORINEF 0.1 M0.1 MG PO; GABAPENTIN300 MG PO; HYDROCODON-ACE1 EA10 PO; LANTUS SOL100 UNIT/2; LANTUS SOL100 UNIT/2 SC; LASIX80 MG PO; NEPHRO-VITE RX1 TAB PO; NEXIUM40 MG PO; OMNICEF300 MG PO; PERCOCET 10-321 EAC1; SEROQUEL100 MG PO; VASCEPA1 GM PO; VITAMIN B-12500 MCG PO
[2021-03-13 15:26] LABS: BASOPHILS 0.5 % (0-2); EOSINOPHILS 2.8 % (0-7); HEMATOCRIT 24.5 % (36.0-48.0); HEMOGLOBIN 7.6 g/dL (12-16); LYMPHOCYTES 11.8 % (15-50); MCHC 30.9 g/dL (31.0-37.0); MCV 100.4 fL (80.0-100.0); MEAN PLATELET VOLUME 6.8 fL (7.4-10.4); MONOCYTES 10.1 % (2-11); NEUTROPHILS 74.8 % (40-80); RBC 2.44 10x6/uL (4.00-5.40); RDW 16.3 % (11.5-14.5); WBC 8.5 10x3/uL (4.8-10.8)
[2021-03-13 15:37] LABS: ALBUMIN 2.9 g/dL (3.4-5.0); ANION GAP 23.4 mmol/L (8-16); BILIRUBIN - TOTAL 0.36 mg/dL (0.2-1.3); CALCIUM 7.2 mg/dL (8.5-10.1); CARBON DIOXIDE 23.3 mmol/L (21.0-32.0); PROTEIN - SERUM 7.1 g/dL (6.4-8.2)
[2021-03-13 15:45] LABS: POTASSIUM - SERUM 6.7 mmol/L (3.5-5.1)
[2021-03-13 15:52] LABS: PLATELET COUNT 237 10x3/uL (130-400)
[2021-03-13 16:22] VITALS: Ht 157.5 cm
--- NOTE | 2021-03-13 19:27 | NUR ---
REPORT RECEIVED FROM KONSTANTIN KIM. PT REMAINS IN DIALYSIS AT THIS TIME.
--- NOTE | 2021-03-13 19:55 | NUR ---
REPORT FROM LISA DIALYSIS NURSE AT THIS TIME. PT THEN BROUGHT BACK IN ROOM. NAD NOTED, RESPIRATIONS EVEN AND NON LABORED. PT BACK ON OPTOMETRIC TECHNICIAN, SINUS RHYTHM OF 99. PT APPEARS TO BE JERKING LIMBS, BUT IS ALERT, ORIENTED TO SELF AND SITUATION SHE BELIEVES SHE IS STILL IN [place], REORIENTED PT TO PLACE. UNABLE TO FLUSH 22G LEFT AC. D/C AT THIS TIME AND ANOTHER NURSE ATTEMPTED IV STICK X2. D/C 22G, CATHETER INTACT, DRESSING APPLIED. PT DENIES CURRENT NEEDS. CALL LIGHT GIVEN AND SIDE RAILS X2.
[2021-03-13 20:00] VITALS: BP 133/82
[2021-03-13 21:00] VITALS: BP 146/72
--- NOTE | 2021-03-13 21:27 | NUR ---
RESTING IN POSITION OF COMFORT, REMAINS ON CARDIAC MONITORING. CALL LIGHT WITHIN REACH AND SIDE RAILS UP X2. PT DENIES CURRENT NEEDS.
[2021-03-13 22:00] VITALS: BP 154/70
[2021-03-13] MEDS ORDERED: ZANAFLEX4 MG PO (22:03)
--- NOTE | 2021-03-13 22:11 | NUR ---
SPOKE WITH PT NIECE/CAREGIVER DEYANIRA FRAGOSO @ [phone]. SHE UPDATED PT MEDICATION LIST. INFORMED NURSE THAT PT MISSED DOCTOR APPT TODAY AND WILL NEED MEDICATIONS REFILLED: LASIX, ATIVAN, HYDROCODONE, SEROQUEL. SHE ALSO STATES THAT PT HAS A WOUND ON LEFT FOOT THAT SHE WOULD LIKE ASSESSED AND TREATED HERE. PAGED DR. HAGEN FOR UPDATE ON POC FOR PT. PT STILL EXPERIENCING MYOCLONIC JERKING BUT APPEARS MORE ALERT.
--- NOTE | 2021-03-13 22:23 | NUR ---
NEPHROLOGY CALLED BACK AT THIS TIME, STATES THAT LABS WILL BE CHECKED IN AM. NO TELEPHONE ORDERS GIVEN AT THIS TIME PER DR. DE JESUS
--- NOTE | 2021-03-13 22:26 | NUR ---
HEELS BRIDGED AT THIS TIME, OBSERVED PT REPOSITIONING BODY OFF OF BOTTOM.
[2021-03-13 23:00] VITALS: BP 146/94
--- NOTE | 2021-03-13 23:45 | NUR ---
PT MOVED TO HOSPITAL BED X1 ASSIST. PT THEN MOVED OUT OF TRAUMA 2 TO ROOM 9. CALL LIGHT WITHIN REACH, PT TURNED TO LEFT SIDE AND HEELS BRIDGED. NAD NOTED AT THIS TIME. PT REMAINS ON BOOTS AND SHOES SUPERVISOR AND 2L NC.
[2021-03-14] VITALS (7 sets, daily range): BP systolic 125–160; BP diastolic 55–69
--- NOTE | 2021-03-14 02:00 | NUR ---
VOIDED 125ML CONCENTRATED YELLOW URINE VIA BED ARCOS AT THIS TIME.
--- NOTE | 2021-03-14 03:37 | NUR ---
PT INCONTINENT OF URINE, LINEN CHANGE AND PERINEAL CARE PROVIDED. NAD NOTED, RESPIRATIONS EVEN AND NON LABORED. REMAINS ON CARDIAC MONITORING. PT ABLE TO USE CALL LIGHT TO TELL NURSE THAT SHE VOIDED. SIDERAILS X2, BED LOW.
--- NOTE | 2021-03-14 05:21 | NUR ---
PT RESTING IN BED IN POSITION OF COMFORT WATCHING TELEVISION.
[2021-03-14 06:08] LABS: BASOPHILS 0.5 % (0-2); HEMATOCRIT 26.8 % (36.0-48.0); HEMOGLOBIN 8.4 g/dL (12-16); LYMPHOCYTES 15.9 % (15-50); MCH 30.9 pg (26.0-34.0); MCHC 31.2 g/dL (31.0-37.0); MEAN PLATELET VOLUME 6.9 fL (7.4-10.4); MONOCYTES 9.8 % (2-11); NEUTROPHILS 69.8 % (40-80); PLATELET COUNT 250 10x3/uL (130-400); RDW 15.8 % (11.5-14.5); WBC 6.9 10x3/uL (4.8-10.8)
[2021-03-14 06:58] LABS: ANION GAP 18.6 mmol/L (8-16); CARBON DIOXIDE 26.4 mmol/L (21.0-32.0); MAGNESIUM - SERUM 1.9 mg/dL (1.8-2.4); PHOSPHOROUS 6.8 mg/dL (2.5-4.9)
[2021-03-14 06:59] LABS: CREATININE - SERUM 5.4 mg/dL (0.6-1.3)
--- NOTE | 2021-03-14 07:06 | NUR ---
REPORT GIVEN TO KONSTANTIN STONER AT THIS TIME.
--- NOTE | 2021-03-14 16:49 | MORECARE ---
CASE MANAGEMENT DISCHARGE SUMMARY PATIENT: RICHA DURAN UNIT: [id number] ADM DATE: 03/13/21 AGE: 56 : 65 SEX: F ROOM/BED: D.T02 AUTHOR: QUANG,DOC PHYSICIAN: REFERRING PHYSICIAN: LALITA HAGEN DO DATE OF SERVICE: 03/14/21 Case Management Discharge Planning Summary DCP REVIEW SUMMARY ANTICIPATED D/C DATE: EXPECTED LOS : CASE STATUS: DCP Initiated INITIAL REVIEW: 03/13/2021 INITIAL REVIEWER: Aurora Hamilton FINAL DISCHARGE DISPOSITION: : FINAL REVIEWER: FINAL REVIEW DATE: DCP Focus Questions & Answers QUESTION: ANSWER : PATIENT: RICHA DURAN ENCOUNTER: [id number] MEDICAL RECORD#: [id number] ADMISSION DATE: 03/13/2021 DISCHARGE DATE: 03/14/2021 ATTENDING MD: SAMANTHA: AGE: 56 MARITAL STATUS: S DC PLAN ID: [id number] FACILITY: [facility] PRINTED ON: 03/14/21 16:48 CT All edits/amendments must be made on the electronic document DICTATION DATE: 03/14/211647 ESE TEACHER: DM 03/14/211647 RPT#: [id number] DC DATE:03/14/21 STATUS: DIS IN [facility] [address] [place] [address] END OF REPORT
--- NOTE | 2021-03-14 17:15 | MORECARE ---
CASE MANAGEMENT DISCHARGE SUMMARY PATIENT: RICHA DURAN UNIT: [id number] ADM DATE: 03/13/21 AGE: 56 : 65 SEX: F ROOM/BED: D.T02 AUTHOR: BRY DEL RIO PHYSICIAN: REFERRING PHYSICIAN: LALITA HAGEN DO DATE OF SERVICE: 03/14/21 Case Management Discharge Planning Summary COMMENTS ENTERED DATE: 03/14/21 16:43 CT COMMENT TYPE: Discharge Planning REVIEWER: Aurora Hamilton CM called patient at 2:30 today, she was in dialysis. She states she will not have a ride for discharge. I called patient's family member, Jo-Ann Bennett. Edelmira states that she needs to ride the [facility] bus. I called [facility] at [phone] and spoke to Lynda at [phone]. Lynda states it would be an hour before independent driver could get here. I then received a call now from ED that patient was not on their miner pick list. I called back and spoke with supervisor screen printing Nancy, she states Lynda is new and thought patient was at the dialysis center. Nancy states even though it was their mistake they are unable to provide transportation tonight. States they will pay 54 cents a mile for someone to take her. I called daughter and explained this and she is unable to get her. I called taxi and they will transport for 195 dollars. Grace Jaime ok'd the tab. I called Emma in the ED and informed Taxi will be here in 30 minutes. Daughter informed. DCP REVIEW SUMMARY ANTICIPATED D/C DATE: EXPECTED LOS : CASE STATUS: DCP Initiated INITIAL REVIEW: 03/13/2021 INITIAL REVIEWER: Aurora Hamilton FINAL DISCHARGE DISPOSITION: : FINAL REVIEWER: FINAL REVIEW DATE: DCP [employer] Questions [employer] Answers QUESTION: ANSWER : PATIENT: RICHA DURAN ENCOUNTER: [id number] MEDICAL RECORD#: [id number] ADMISSION DATE: 03/13/2021 DISCHARGE DATE: 03/14/2021 ATTENDING MD: SAMANTHA: AGE: 56 MARITAL STATUS: S DC PLAN ID: [id number] FACILITY: [facility] PRINTED ON: 03/14/21 17:15 CT All edits/amendments must be made on the electronic document DICTATION DATE: 03/14/21 7204 GUN PERFORATOR LOADER: ALMAZ 03/14/21 1715 RPT#: [id number] DC DATE:03/14/21 STATUS: DIS IN [place] [id number] [place] [address] END OF REPORT
== END 2021-03-14 12:35 | disposition home or self-care (01) ==
LOC: D.ER 14:27 → OBSVTIME 15:50 → D.EDHOLD 15:50
PROVIDERS: Family Medicine; ADMIT Internal Medicine; ATTEND Internal Medicine
DX: I12.0 Hypertensive chronic kidney disease with stage 5 chronic kidney disease or end stage renal disease (principal); N18.6 End stage renal disease; E87.5 Hyperkalemia; Z91.19 Patient's noncompliance with other medical treatment and regimen; E11.22 Type 2 diabetes mellitus with diabetic chronic kidney disease; Z79.4 Long term (current) use of insulin; G93.41 Metabolic encephalopathy; Z99.2 Dependence on renal dialysis